=== PATIENT | male | born 1970 | race Caucasian/White ===

== ENCOUNTER 2016-11-05 15:04 | Emergency (ER) | payer BC, OTHER ==
--- NOTE | 2016-11-05 15:36 | ER Document Report ---
ED Medical Screen (RME) - General Stated Complaint: TOOTH PAIN/FEVER Notes: Patient is a 46-year-old male presents emergency Department with tooth pain for the past 2 days. Also admits to fevers and chills. Otherwise denies any foul odor or drainage. I have greeted and performed a rapid initial assessment of this patient. A comprehensive ED assessment and evaluation of the patient, analysis of test results and completion of the medical decision making process will be conducted by additional ED providers. Physical Exam - Vital signs Vitals: Temp Pulse Resp BP Pulse Ox 98.4 F 85 18 158/95 H 100 11/05/16 15:23 11/05/16 15:23 11/05/16 15:23 11/05/16 15:23 11/05/16 15:23 Course - Vital Signs Vital signs: Temp Pulse Resp BP Pulse Ox 98.4 F 85 18 158/95 H 100 11/05/16 15:23 11/05/16 15:23 11/05/16 15:23 11/05/16 15:23 11/05/16 15:23
[2016-11-05] MEDS ORDERED: IBUPROFEN 800 MG TABLET PO ONE (15:37)
[2016-11-05] MEDS ORDERED: ACETAMINOPHEN 325 MG TABLET PO ONE (15:54)
--- NOTE | 2016-11-05 16:56 | ER Document Report ---
HPI - HPI Patient complains to provider of: dental pain Onset: Other - 4 days Quality of pain: Achy Severity: Severe Pain Level: 4 Context: Presents to the emergency department with complaints of left upper dental pain that started on Thursday. He also reports he started having fever and chills on Thursday. Reports fever up to 103. He also reports he vomited twice. Patient reports he took Aleve before coming to the emergency department but it did not help his pain. Associated Symptoms: Fever, Nausea, Vomiting Exacerbated by: Denies Relieved by: Denies Similar symptoms previously: No Recently seen / treated by doctor: No - DERM Skin Color: Normal Past Medical History - General Information source: Patient - Social History Smoking Status: Never Smoker Cigarette use (# per day): No Chew tobacco use (# tins/day): No Frequency of alcohol use: None Drug Abuse: None Family History: None Patient has suicidal ideation: No Patient has homicidal ideation: No - Medical History Medical History: Negative Renal/ Medical History: Denies: Hx Peritoneal Dialysis Past Surgical History: Reports: Hx Cholecystectomy, Hx Orthopedic Surgery - Immunizations Hx Diphtheria, Pertussis, Tetanus Vaccination: No Vertical Provider Document - CONSTITUTIONAL Agree With Documented VS: Yes Exam Limitations: No Limitations General Appearance: WD/WN, No Apparent Distress - INFECTION CONTROL TRAVEL OUTSIDE OF THE [place] IN LAST 30 DAYS: No - HEENT HEENT: Atraumatic, Normocephalic. negative: Pharyngeal Erythema Mouth Diagram: 1 - Complains of pain with touch. No obvious dental cavities noted no erythema /swelling or pustule, opens mouth wide good clear voice, no induration no ludwigs - NECK Neck: Normal Inspection, Supple. negative: Lymphadenopathy-Left, Lymphadenopathy-Right - RESPIRATORY Respiratory: Breath Sounds Normal, No Respiratory Distress O2 Sat by Pulse Oximetry: 100 - CARDIOVASCULAR Cardiovascular: Regular Rate - GI/ABDOMEN Gastrointestinal: Abdomen Soft, Abdomen Non-Tender - MUSCULOSKELETAL/EXTREMETIES Musculoskeletal/Extremeties: MAEW, FROM - NEURO Level of Consciousness: Awake, Alert, Appropriate Motor/Sensory: No Motor Deficit - DERM Integumentary: Warm, Dry Course - Re-evaluation Re-evalutation: 11/05/16 Temperature recheck 98.1. Patient instructed on negative flu test. Patient instructed on medications. He was also instructed to follow up with dental. He verbalized understanding. - Vital Signs Vital signs: Temp Pulse Resp BP Pulse Ox 98.4 F 85 18 158/95 H 100 11/05/16 15:23 11/05/16 15:23 11/05/16 15:23 11/05/16 15:23 11/05/16 15:23 Discharge - Discharge Clinical Impression: Pain, dental, Flu-like symptoms, elevated blood pressure Condition: Stable Disposition: HOME, SELF-CARE Instructions: Clindamycin (OM), Toothache (OM), Oral Narcotic Medication (OM ) Additional Instructions: *You have been evaluated for dental pain, flu like symptoms *Monitor your blood pressure. Your blood pressure was elevated today. This may be because you were anxious, in pain or because you need medication. It is important to follow up with your primary care provider for full evaluation. *Take medications as prescribed *Follow up with a dentist within one week *Return to ED for worsening condition, changes, needs Prescriptions: Clindamycin HCl 300 mg PO QID #20 capsule Hydrocodone/Acetaminophen [Dagmar 5-325 Tablet] 1 each PO QID #15 tablet Forms: Elevated Blood Pressure
[2016-11-05 17:59] VITALS: BP 131/85
== END 2016-11-05 17:54 | disposition home or self-care (01) ==
LOC: ER 15:04
DX: K08.89 Other specified disorders of teeth and supporting structures (principal); R50.9 Fever, unspecified; R11.2 Nausea with vomiting, unspecified; I10 Essential (primary) hypertension; Z90.49 Acquired absence of other specified parts of digestive tract
CPT/HCPCS: 87804; 99283

== ENCOUNTER 2017-03-17 08:08 | Emergency (ER) | payer OTHER ==
[2017-03-17] MEDS ORDERED: TETRACAINE HCL 0.5% OPH SOLN 2 ML OD ONE (09:36)
[2017-03-17] MEDS ORDERED: DIPH/PERTUSS(ACELL)/TETANUS VAC/PF 0.5 ML SYR (>=10YO) IM ONE (09:47)
[2017-03-17] MEDS ORDERED: KETOROLAC TROMETHAMINE 0.45% 4 DROP/0.4 ML DROPERETTE OD ONE (09:48)
[2017-03-17] MEDS ORDERED: POLYMYXIN B SULFATE/TMP OPH SOLN 10 ML OD ONE (09:48)
--- NOTE | 2017-03-17 09:49 | ER Document Report ---
ED Foreign Body - General Mode of Arrival: Ambulatory Information source: Patient TRAVEL OUTSIDE OF THE [place] 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 Patient states that once arriving at the ER he did flush the metal out finally after multiple attempts. He does not when his last tetanus was. He admits to irritation of the eye but denies any actual pain. He denies any blurred vision or vision changes. (MAYNOR MUNOZ) - Related Data Allergies/Adverse Reactions: cephalexin [From Keflex] Allergy (Verified 03/17/17 09:32) ibuprofen [From Advil] Allergy (Verified 03/17/17 09:32) metoclopramide [From Reglan] Allergy (Verified 03/17/17 09:32) morphine Allergy (Verified 03/17/17 09:32) No Known Drug Allergies Allergy (Verified 03/17/17 09:32) Past Medical History - General Information source: Patient - Social History Smoking Status: Current Every Day Smoker Chew tobacco use (# tins/day): No Frequency of alcohol use: None Drug Abuse: None Family History: None Patient has suicidal ideation: No Patient has homicidal ideation: No Renal/ Medical History: Denies: Hx Peritoneal Dialysis Past Surgical History: Reports: Hx Cholecystectomy, Hx Orthopedic Surgery - Immunizations Hx Diphtheria, Pertussis, Tetanus Vaccination: No Review of Systems - Review of Systems Constitutional: No symptoms reported EENT: See HPI Cardiovascular: No symptoms reported Respiratory: No symptoms reported Gastrointestinal: No symptoms reported Genitourinary: No symptoms reported Male Genitourinary: No symptoms reported Musculoskeletal: No symptoms reported Skin: No symptoms reported Hematologic/Lymphatic: No symptoms reported Neurological/Psychological: No symptoms reported Physical Exam - Vital signs Vitals: Temp Pulse Resp BP Pulse Ox 98.1 F 54 L 16 150/94 H 97 03/17/17 08:21 03/17/17 08:21 03/17/17 08:21 03/17/17 08:21 03/17/17 08:21 - Notes Notes: PHYSICAL EXAMINATION: GENERAL: Well-appearing and in no acute distress. HEAD: Atraumatic, normocephalic. EYES: Pupils equal round and reactive to light, extraocular movements intact, sclera anicteric, conjunctiva watering to right eye, flourescein stain revealed small ulcer over iris inferior to pupil NECK: Normal range of motion, supple without lymphadenopathy LUNGS: CTAB and equal. No wheezes rales or rhonchi. HEART: Regular rate and rhythm without murmurs EXTREMITIES: Normal range of motion, no pitting edema. No cyanosis. NEUROLOGICAL: Cranial nerves grossly intact. Normal sensory/motor exams. PSYCH: Normal mood, normal affect. SKIN: Warm, Dry, normal turgor, no rashes or lesions noted (MAYNOR MUNOZ) Procedures - Eye Procedure Right Time completed: 10:48 Eye Irrigated w/ Saline (ccs): 30 Alcaine Drops Administered: Yes Fluorescein applied: Right Antibiotic Oinment/Drps Admin: Right eye Slit lamp used: No Discharge - Discharge Clinical Impression: Need for tetanus booster Abrasion of eye Qualifiers: Encounter type: initial encounter Laterality: right Qualified Code(s): S05.8X1A - Other injuries of right eye and orbit, initial encounter Condition: Stable Disposition: HOME, SELF-CARE Additional Instructions: Return immediately for any new or worsening symptoms. Follow up with primary care provider, call tomorrow to make followup appointment. Prescriptions: Ketorolac Tromethamine 1 drop OD Q8 PRN #1 bottle PRN Reason: Forms: Return to Work Referrals: GILES JOSE DO [ACTIVE STAFF] - Follow up as needed
[2017-03-17 10:25] VITALS: BP 148/90
== END 2017-03-17 10:18 | disposition home or self-care (01) ==
LOC: ER 08:08
DX: S05.8X1A Other injuries of right eye and orbit, initial encounter (principal); T15.91XA Foreign body on external eye, part unspecified, right eye, initial encounter; W22.8XXA Striking against or struck by other objects, initial encounter
CPT/HCPCS: 99283; 90471; 90715; J3490

== ENCOUNTER 2019-10-26 08:20 | Emergency (ER) | payer OTHER ==
[2019-10-26] MEDS ORDERED: NORMAL SALINE 1000 ML 1,000 ML IV ONE (11:05)
[2019-10-26] MEDS ORDERED: ONDANSETRON HCL INJ/PF 4 MG/2 ML SDV IV ONE (11:05)
[2019-10-26] MEDS ORDERED: KETOROLAC TROMETHAMINE INJ/PF 30 MG/1 ML SDV IV ONE (11:05)
--- NOTE | 2019-10-26 11:19 | ER Document Report ---
ED General - General Chief Complaint: Urinary Problem Stated Complaint: NAUSEA/URINARY PROBLEMS Time Seen by Provider: 10/26/19 10:49 Primary Care Provider: PATTI RANKIN PA [Primary Care Provider] - Follow up as needed TRAVEL OUTSIDE OF THE [place] IN LAST 30 DAYS: No - HPI Notes: Mr. Black is a 49-year-old male presenting with a chief complaint of intermittent right flank pain, nausea, anorexia and malaise. Patient says he started with the symptoms about 5 days ago was seen in urgent care center and told that he had "possible prostatitis". He was started on Bactrim and also given some as needed Zofran. Symptoms basically unchanged. Pain is intermittent and at times is severe is 8/10 radiating into right upper quadrant. He denies fever or chills. Denies any known prior history of renal stones. Multiple drug allergies including acetaminophen cephalexin penicillin Cipro and hydrocodone. Patient says he has tolerated Toradol in the past without difficulty. Patient has had lumbar laminectomy in the past and also has had surgical correction of a Chiari malformation. Daily smoker. Denies abuse of drugs or alcohol. - Related Data Allergies/Adverse Reactions: acetaminophen [From Vicodin] Allergy (Verified 10/26/19 08:48) cephalexin [From Keflex] Allergy (Verified 10/26/19 08:48) ciprofloxacin [From Cipro] Allergy (Verified 10/26/19 08:48) hydrocodone [From Vicodin] Allergy (Verified 10/26/19 08:48) ibuprofen [From Advil] Allergy (Verified 10/26/19 08:48) metoclopramide [From Reglan] Allergy (Verified 10/26/19 08:48) morphine Allergy (Verified 10/26/19 08:48) Home Medications: fish oil, bactrim Past Medical History - Social History Smoking Status: Current Every Day Smoker Chew tobacco use (# tins/day): No Frequency of alcohol use: None Drug Abuse: None Family History: None Patient has suicidal ideation: No Patient has homicidal ideation: No Renal/ Medical History: Denies: Hx Peritoneal Dialysis Past Surgical History: Reports: Hx Cholecystectomy, Hx Orthopedic Surgery - Immunizations Hx Diphtheria, Pertussis, Tetanus Vaccination: No Review of Systems - Review of Systems Notes: Constitutional: Negative for fever. HENT: Negative for sore throat. Eyes: Negative for visual changes. Cardiovascular: Negative for chest pain. Respiratory: Negative for shortness of breath. Gastrointestinal: As per HPI. Genitourinary: Negative for dysuria. Musculoskeletal: As per HPI. Skin: Negative for rash. Neurological: Negative for headaches, weakness or numbness. 10 point ROS negative except as marked above and in HPI. Physical Exam - Vital signs Vitals: Temp Pulse Resp BP Pulse Ox 98.7 F 73 16 125/86 H 98 10/26/19 08:24 10/26/19 08:24 10/26/19 08:24 10/26/19 08:24 10/26/19 08:24 - Notes Notes: GENERAL: Well-developed well-nourished appearing generally unwell and uncomfortable. SKIN: Good turgor no rashes. HEAD: Normocephalic atraumatic. EYES: PERRLA. EOMI. Conjunctivae and sclerae clear. EARS: CANALS AND TMS CLEAR. NOSE: CLEAR. MOUTH: Moist mucosa. Good dentition. No stridor or edema. No drooling. NECK: Supple. No masses or thyromegaly. No adenopathy. Carotids 2+ without bruits. No JVD. BACK: Right CVAT. CHEST: Respirations unlabored. Breath sounds clear and symmetrical. HEART: Regular rhythm. No murmur gallop or rub. ABDOMEN: Mild tenderness on deep palpation right upper quadrant. Soft without masses, organomegaly or rebound. Bowel sounds normally active. No bruits. GENITALIA: Deferred. EXTREMITIES: No edema. No calf tenderness. Cap refill less than 1.5 seconds. Dorsalis pedis and posterior tibial pulses 3+ and symmetrical. NEUROLOGICAL: GCS 15. Alert and oriented x3. Normal gait. Fluent speech. Cranial nerves II through XII intact. Sensorimotor and cerebellar normal. Normal tone. PSYCHIATRIC: Appropriate affect. Course - Vital Signs Vital signs: Temp Pulse Resp BP Pulse Ox 98.1 F 60 18 124/88 H 100 10/26/19 13:14 10/26/19 13:14 10/26/19 13:14 10/26/19 13:14 10/26/19 13:14 - Laboratory Result Diagrams: 10/26/19 11:24 10/26/19 11:24 Laboratory results interpreted by me: 10/26/19 10/26/19 11:24 11:24 WBC 10.6 H Leukocyte Esterase Rfl TRACE H Discharge - Discharge Clinical Impression: Right Flank Pain Condition: Stable Disposition: ELOPED Referrals: PATTI RANKIN PA [Primary Care Provider] - Follow up as needed
[2019-10-26 11:43] LABS: ABSOLUTE EOSINOPHILS # (AUTO) 0.1 10^3/uL (0.0-0.6); ABSOLUTE LYMPHOCYTES (AUTO) 2.3 10^3/uL (0.5-4.7); ABSOLUTE MONOCYTES (AUTO) 0.5 10^3/uL (0.1-1.4); ABSOLUTE NEUT (AUTO) 7.7 10^3/uL (1.7-8.2); BASOPHILS % (AUTO) 0.2 % (0-2); HEMATOCRIT 43.1 % (37.9-51.0); HEMOGLOBIN 14.8 g/dL (13.5-17.0); LYMPHOCYTES % (AUTO) 21.5 % (13-45); MEAN CORPUSCULAR HEMOGLOBIN 32.5 pg (27.0-33.4); MEAN CORPUSCULAR HGB CONC 34.3 g/dL (32.0-36.0); MEAN CORPUSCULAR VOLUME 95 fl (80-97); MONOCYTES % (AUTO) 4.5 % (3-13); PLATELET COUNT 239 10^3/uL (150-450); RED BLOOD COUNT 4.55 10^6/uL (4.35-5.55); RED CELL DISTRIBUTION WIDTH 13.9 % (11.5-14.0); SEGMENTED NEUTROPHILS % (AUTO) 72.8 % (42-78); TOTAL CELLS COUNTED % (AUTO) 100 %; WHITE BLOOD COUNT 10.6 10^3/uL (4.0-10.5)
[2019-10-26 11:46] LABS: APPEARANCE,URINE CLEAR; BILIRUBIN,URINE NEGATIVE (NEGATIVE); COLOR,URINE YELLOW; GLUCOSE, URINE NEGATIVE (NEGATIVE); KETONES,URINE NEGATIVE (NEGATIVE); PROTEIN,URINE NEGATIVE (NEGATIVE); URINE SPECIFIC GRAVITY 1.016; UROBILINOGEN,URINE NEGATIVE mg/dL (<2.0)
[2019-10-26 11:58] LABS: ALKALINE PHOSPHATASE 62 U/L (38-126); ANION GAP 9 (5-19); ASPARTATE AMINO TRANSFERASE 34 U/L (17-59); BILIRUBIN,DIRECT 0.2 mg/dL (0.0-0.4); BILIRUBIN,TOTAL 0.4 mg/dL (0.2-1.3); BLOOD UREA NITROGEN 8 mg/dL (7-20); CALCIUM 9.3 mg/dL (8.4-10.2); CARBON DIOXIDE 26 mmol/L (22-30); CHLORIDE 105 mmol/L (98-107); GLUCOSE 77 mg/dL (75-110); POTASSIUM 4.8 mmol/L (3.6-5.0)
--- NOTE | 2019-10-26 12:01 | RADIOLOGY REPORT (SQ) ---
EXAM DESCRIPTION: CT ABD/PELVIS NO ORAL OR IV COMPLETED DATE/TIME: 10/26/2019 11:40 am REASON FOR STUDY: Right flank pain and hematuria COMPARISON: None. TECHNIQUE: CT scan of the abdomen and pelvis performed without intravenous or oral contrast. Images reviewed with lung, soft tissue, and bone windows. Reconstructed coronal and sagittal MPR images revi ewed. All images stored on PACS. All CT scanners at this facility use dose modulation, iterative reconstruction, and/or weight based d osing when appropriate to reduce radiation dose to as low as reasonably achievable (ALARA). [facility]: Dose Right [facility]: CareDose [facility]: Dose Right [facility]: Teradose 4D [facility]: Smart UserEvents RADIATION DOSE: CT Rad equipment meets quality standard of care and radiation dose reduction techniq ues were employed. CTDIvol: 5.7 mGy. DLP: 324 mGy-cm.mGy. LIMITATIONS: None. FINDINGS: LOWER CHEST: No acute findings. NON-CONTRASTED LIVER, SPLEEN, ADRENALS: Evaluation is limited due to the absence of intravenous contr ast. There are geographic areas of hepatic steatosis in the right hepatic lobe. The spleen is lebron l in size. There is no abnormality of the adrenal glands PANCREAS: No acute gross abnormality of the pancreas GALLBLADDER: The gallbladder is surgically absent. RIGHT KIDNEY AND URETER: Evaluation is limited due to the absence of intravenous contrast. There is no hydronephrosis, nephrolithiasis, hydroureter or ureterolithiasis. LEFT KIDNEY AND URETER: Evaluation is limited due to the absence of intravenous contrast. There is n o hydronephrosis, nephrolithiasis, hydroureter or ureterolithiasis. AORTA AND RETROPERITONEUM: No aneurysm of the abdominal aorta. No retroperitoneal adenopathy, hemorr inc or mass. BOWEL AND PERITONEAL CAVITY: Colonic diverticulosis without diverticulitis. There is no bowel obstru ction, bowel wall thickening, pericolonic/perienteric inflammation. The spiculated density near the left inguinal canal (image 76 of see series 3) is nonspecific. There is no free intraperitoneal flui d, mesenteric adenopathy or mesenteric/ omental inflammation APPENDIX: Normal. PELVIS, BLADDER, AND ABDOMINAL WALL: The urinary bladder is distended and normal in appearance. The prostate gland is normal in size. BONES: No acute findings. OTHER: No abdominal wall masses or hernias. IMPRESSION: No acute intra-abdominal abnormality. COMMENT: Quality ID # [id number]: Final reports with documentation of one or more dose reduction techniques (e.g., Automated exposure control, adjustment of the mA and/or kV according to patient size, use of iterative reconstruction technique) TECHNICAL DOCUMENTATION: JOB ID: [id number] [employer]- All Rights Reserved Reading location - IP/workstation name: [email or web address]
[2019-10-26 13:16] VITALS: BP 124/88
== END 2019-10-26 14:05 | disposition left against medical advice (07) ==
LOC: ER 08:20
DX: R10.9 Unspecified abdominal pain (principal); R11.0 Nausea; R53.81 Other malaise; R63.0 Anorexia; F17.210 Nicotine dependence, cigarettes, uncomplicated; Z88.0 Allergy status to penicillin; Z88.3 Allergy status to other anti-infective agents; Z88.6 Allergy status to analgesic agent; Z90.49 Acquired absence of other specified parts of digestive tract
CPT/HCPCS: 99281; 96361; 96374; 96375; 36415; 87086; 85025; 80053; 81001; 74176; J1885; J2405; J7030

== ENCOUNTER 2019-12-01 22:00 | Emergency (ER) | payer OTHER ==
[2019-12-01] MEDS ORDERED: KETOROLAC TROMETHAMINE INJ/PF 30 MG/1 ML SDV IV ONE (22:37)
--- NOTE | 2019-12-01 22:43 | ER Document Report ---
ED Medical Screen (RME) - General Chief Complaint: Possible Kidney Stone Stated Complaint: POSSIBLE KIDNEY STONES Time Seen by Provider: 12/01/19 22:32 Primary Care Provider: PATTI RANKIN PA [Primary Care Provider] - Follow up as needed Notes: Patient is a 49-year-old male who presents to the emergency department with urinating mucus today. He also has some associated nausea and flank pain. He has been taking Zofran. Patient was seen by her urologist today and was told that on ultrasound they were able to see some stones. He was seen here in the emergency department 5 days ago with similar symptoms. Physical exam: Right CVA tenderness. I have greeted and performed a rapid initial assessment of this patient. A comprehensive ED assessment and evaluation of the patient, analysis of test results and completion of medical decision making process will be conducted by an additional ED providers. TRAVEL OUTSIDE OF THE [place] IN LAST 30 DAYS: No - Related Data Allergies/Adverse Reactions: acetaminophen [From Vicodin] Allergy (Verified 10/26/19 08:48) cephalexin [From Keflex] Allergy (Verified 10/26/19 08:48) ciprofloxacin [From Cipro] Allergy (Verified 10/26/19 08:48) hydrocodone [From Vicodin] Allergy (Verified 10/26/19 08:48) ibuprofen [From Advil] Allergy (Verified 10/26/19 08:48) metoclopramide [From Reglan] Allergy (Verified 10/26/19 08:48) morphine Allergy (Verified 10/26/19 08:48) Home Medications: [place] 3. prednisone. zofran Past Medical History - Social History Chew tobacco use (# tins/day): No Frequency of alcohol use: None Drug Abuse: None Renal/ Medical History: Denies: Hx Peritoneal Dialysis Past Surgical History: Reports: Hx Cholecystectomy, Hx Orthopedic Surgery - Immunizations Hx Diphtheria, Pertussis, Tetanus Vaccination: No Physical Exam - Vital signs Vitals: Temp Pulse Resp BP Pulse Ox 98.7 F 87 16 155/94 H 97 12/01/19 22:09 12/01/19 22:09 12/01/19 22:09 12/01/19 22:09 12/01/19 22:09 Course - Vital Signs Vital signs: Temp Pulse Resp BP Pulse Ox 98.7 F 87 16 155/94 H 97 12/01/19 22:09 12/01/19 22:09 12/01/19 22:09 12/01/19 22:09 12/01/19 22:09 Doctor's Discharge - Discharge Referrals: PATTI RANKIN PA [Primary Care Provider] - Follow up as needed
[2019-12-01 23:36] LABS: ABSOLUTE LYMPHOCYTES (AUTO) 3.4 10^3/uL (0.5-4.7); ABSOLUTE MONOCYTES (AUTO) 0.9 10^3/uL (0.1-1.4); ABSOLUTE NEUT (AUTO) 9.3 10^3/uL (1.7-8.2); BASOPHILS % (AUTO) 0.3 % (0-2); EOSINOPHILS % (AUTO) 0.4 % (0-6); HEMATOCRIT 41.6 % (37.9-51.0); HEMOGLOBIN 14.4 g/dL (13.5-17.0); LYMPHOCYTES % (AUTO) 24.7 % (13-45); MEAN CORPUSCULAR HEMOGLOBIN 32.6 pg (27.0-33.4); MEAN CORPUSCULAR HGB CONC 34.7 g/dL (32.0-36.0); MEAN CORPUSCULAR VOLUME 94 fl (80-97); MONOCYTES % (AUTO) 6.4 % (3-13); PLATELET COUNT 280 10^3/uL (150-450); RED BLOOD COUNT 4.44 10^6/uL (4.35-5.55); RED CELL DISTRIBUTION WIDTH 13.8 % (11.5-14.0); SEGMENTED NEUTROPHILS % (AUTO) 68.2 % (42-78); TOTAL CELLS COUNTED % (AUTO) 100 %; WHITE BLOOD COUNT 13.6 10^3/uL (4.0-10.5)
[2019-12-01 23:52] LABS: ALBUMIN 4.4 g/dL (3.5-5.0); ALKALINE PHOSPHATASE 59 U/L (38-126); ANION GAP 9 (5-19); ASPARTATE AMINO TRANSFERASE 25 U/L (17-59); BILIRUBIN,DIRECT 0.3 mg/dL (0.0-0.4); BILIRUBIN,TOTAL 0.3 mg/dL (0.2-1.3); BLOOD UREA NITROGEN 19 mg/dL (7-20); CARBON DIOXIDE 32 mmol/L (22-30); CHLORIDE 99 mmol/L (98-107); GLUCOSE 107 mg/dL (75-110); TOTAL PROTEIN 7.3 g/dL (6.3-8.2)
[2019-12-02 00:24] LABS: APPEARANCE,URINE SLIGHTLY-CLOUDY; BILIRUBIN,URINE NEGATIVE (NEGATIVE); COLOR,URINE AMBER; GLUCOSE, URINE NEGATIVE (NEGATIVE); KETONES,URINE TRACE mg/dL (NEGATIVE); LEUKOCYTE ESTERASE,URINE TRACE (NEGATIVE); NITRITE,URINE NEGATIVE (NEGATIVE); PROTEIN,URINE 30 mg/dL (NEGATIVE); URINE SPECIFIC GRAVITY 1.026
[2019-12-02] MEDS ORDERED: NORMAL SALINE 1000 ML 1,000 ML IV ONE (00:59)
--- NOTE | 2019-12-02 01:13 | ER Document Report ---
ED GI/ - General Chief Complaint: Possible Kidney Stone Stated Complaint: POSSIBLE KIDNEY STONES Time Seen by Provider: 12/01/19 22:32 Primary Care Provider: PATTI RANKIN PA [Primary Care Provider] - Follow up as needed Notes: Patient is a 49-year-old male who comes emergency department for chief complaints of some intermittent mid to lower abdominal discomfort, some intermittent pain in the right side of his back, and what looks like "mucus" in his urine that he noticed earlier today. He states that he has been having intermittent symptoms since last month when he was evaluated here and had a CAT scan. He states he followed up, he was told that he had "some pancreatitis" and he states that he was placed on prednisone for this. I questioned patient about this but he states that he definitely is on a prednisone taper and he was told it was for pancreatitis. He states that he also was told that he had "little stones" on ultrasound after he was seen by urology. He states he has a pending follow-up appointment tomorrow but he wanted to be checked out tonight. He states that he was given Toradol and he took some Zofran he was prescribed and now he actually feels a lot better. He states he is still eating but less than usual. Patient has had a cholecystectomy, Chiari malformation repair, lumbar laminectomy. He denies history of kidney stones previously. He states he is not currently on any antibiotics. TRAVEL OUTSIDE OF THE [place] IN LAST 30 DAYS: No - Related Data Allergies/Adverse Reactions: acetaminophen [From Vicodin] Allergy (Verified 10/26/19 08:48) cephalexin [From Keflex] Allergy (Verified 10/26/19 08:48) ciprofloxacin [From Cipro] Allergy (Verified 10/26/19 08:48) hydrocodone [From Vicodin] Allergy (Verified 10/26/19 08:48) ibuprofen [From Advil] Allergy (Verified 10/26/19 08:48) metoclopramide [From Reglan] Allergy (Verified 10/26/19 08:48) morphine Allergy (Verified 10/26/19 08:48) Home Medications: [place] 3. prednisone. zofran Past Medical History - General Information source: Patient - Social History Smoking Status: Current Every Day Smoker Chew tobacco use (# tins/day): No Frequency of alcohol use: None Drug Abuse: None Lives with: Family Family History: None Patient has suicidal ideation: No Patient has homicidal ideation: No Renal/ Medical History: Denies: Hx Peritoneal Dialysis Past Surgical History: Reports: Hx Cholecystectomy, Hx Orthopedic Surgery - L4 L5 lamenectomy - Immunizations Hx Diphtheria, Pertussis, Tetanus Vaccination: Yes Review of Systems - Review of Systems Constitutional: See HPI EENT: No symptoms reported Cardiovascular: No symptoms reported Respiratory: No symptoms reported Gastrointestinal: See HPI Genitourinary: See HPI Male Genitourinary: No symptoms reported Musculoskeletal: No symptoms reported Skin: No symptoms reported Hematologic/Lymphatic: No symptoms reported Neurological/Psychological: No symptoms reported Physical Exam - Vital signs Vitals: Temp Pulse Resp BP Pulse Ox 98.7 F 87 16 155/94 H 97 12/01/19 22:09 12/01/19 22:09 12/01/19 22:09 12/01/19 22:09 12/01/19 22:09 - Notes Notes: GENERAL: Alert, interacts well. No acute distress. HEAD: Normocephalic, atraumatic. EYES: Pupils equal, round, and reactive to light. Extraocular movements intact. ENT: Oral mucosa dry, tongue midline. Oropharynx unremarkable. Airway patent. Nares patent, no nasal septal hematoma NECK: Full range of motion. Supple. Trachea midline. LUNGS: Clear to auscultation bilaterally, no wheezes, rales, or rhonchi. No respiratory distress. HEART: Regular rate and rhythm. No murmur ABDOMEN: Soft, non-tender. Non-distended. Bowel sounds present in all 4 quadrants. GENITOURINARY: Deferred EXTREMITIES: Moves all 4 extremities spontaneously. No edema, normal radial and dorsalis pedis pulses bilaterally. No cyanosis. BACK: No CVA tenderness. No cervical, thoracic, lumbar midline tenderness. No saddle anesthesia, normal distal neurovascular exam. Moves all extremities in full range of motion. NEUROLOGICAL: Alert and oriented x3. Normal speech. Cranial nerves II through XII grossly intact. PSYCH: Normal affect, normal mood. SKIN: Warm, dry, normal turgor. No rashes or lesions noted. Course - Re-evaluation Re-evalutation: Patient is well-appearing, he has no CVA tenderness on exam, his abdomen is soft and benign, he is well-appearing other than somewhat dry mucous membranes. CBC shows mild leukocytosis, nonspecific given symptoms and exam, chemistry unremarkable including lipase. Urinalysis unremarkable except for elevated s pecific gravity. Patient given IV fluids. Patient is requesting discharge after IV fluids and states he feels much better, states she has a close follow- up appointment. I did offer to perform an ultrasound to evaluate for potential stones and hydronephrosis but patient declined. He states he will get his reports and he will be seen again today anyway. Discussed follow-up and return precautions. Patient states appreciation and agreement. Stable at time of discharge. - Vital Signs Vital signs: Temp Pulse Resp BP Pulse Ox 97.4 F 58 L 15 140/87 H 95 12/02/19 02:11 12/02/19 02:11 12/02/19 02:11 12/02/19 02:11 12/02/19 02:11 - Laboratory Result Diagrams: 12/01/19 23:15 12/01/19 23:15 Laboratory results interpreted by me: 12/01/19 12/01/19 12/01/19 23:15 23:15 23:44 WBC 13.6 H Absolute Neuts (auto) 9.3 H Carbon Dioxide 32 H Urine Protein 30 H Urine Ketones TRACE H Urine Urobilinogen 2.0 H Ur Leukocyte Esterase TRACE H Discharge - Discharge Clinical Impression: Flank pain, Dehydration Abdominal pain Qualifiers: Abdominal location: generalized Qualified Code(s): R10.84 - Generalized abdominal pain Condition: Stable Disposition: HOME, SELF-CARE Additional Instructions: You have been treated for dehydration. Your urinalysis, chemistry, lipase, do not show any concerning findings. Follow close with your primary care provider and urologist for additional management. Return for any concerning or worsening symptoms including vomiting, fever, severe worsening pain, or any other concerning symptoms. Referrals: PATTI RANKIN PA [Primary Care Provider] - Follow up as needed
[2019-12-02 02:13] VITALS: BP 140/87
== END 2019-12-02 02:13 | disposition home or self-care (01) ==
LOC: ER 22:00
DX: R10.84 Generalized abdominal pain (principal); E86.0 Dehydration; R10.9 Unspecified abdominal pain; R10.30 Lower abdominal pain, unspecified; M54.9 Dorsalgia, unspecified; R63.0 Anorexia; Z90.49 Acquired absence of other specified parts of digestive tract; Z88.1 Allergy status to other antibiotic agents; Z88.8 Allergy status to other drugs, medicaments and biological substances; F17.200 Nicotine dependence, unspecified, uncomplicated
CPT/HCPCS: 99284; 96361; 96374; 36415; 87086; 83690; 85025; 80053; 81001; J1885; J7030

== ENCOUNTER 2019-12-15 10:01 | Emergency (ER) | payer OTHER ==
[2019-12-15 10:45] LABS: ABSOLUTE BASOPHILS # (AUTO) 0.1 10^3/uL (0.0-0.2); ABSOLUTE EOSINOPHILS # (AUTO) 0.1 10^3/uL (0.0-0.6); ABSOLUTE LYMPHOCYTES (AUTO) 1.7 10^3/uL (0.5-4.7); ABSOLUTE MONOCYTES (AUTO) 0.4 10^3/uL (0.1-1.4); ABSOLUTE NEUT (AUTO) 11.1 10^3/uL (1.7-8.2); BASOPHILS % (AUTO) 0.4 % (0-2); EOSINOPHILS % (AUTO) 0.5 % (0-6); HEMATOCRIT 43.8 % (37.9-51.0); HEMOGLOBIN 15.4 g/dL (13.5-17.0); LYMPHOCYTES % (AUTO) 12.9 % (13-45); MEAN CORPUSCULAR HEMOGLOBIN 32.8 pg (27.0-33.4); MEAN CORPUSCULAR HGB CONC 35.1 g/dL (32.0-36.0); MEAN CORPUSCULAR VOLUME 93 fl (80-97); MONOCYTES % (AUTO) 2.7 % (3-13); PLATELET COUNT 279 10^3/uL (150-450); RED BLOOD COUNT 4.69 10^6/uL (4.35-5.55); RED CELL DISTRIBUTION WIDTH 13.6 % (11.5-14.0); SEGMENTED NEUTROPHILS % (AUTO) 83.5 % (42-78); TOTAL CELLS COUNTED % (AUTO) 100 %; WHITE BLOOD COUNT 13.2 10^3/uL (4.0-10.5)
--- NOTE | 2019-12-15 10:51 | ER Document Report ---
ED General - General Chief Complaint: Flank Pain Stated Complaint: FLANK PAIN Time Seen by Provider: 12/15/19 10:50 Primary Care Provider: PATTI RANKIN PA [Primary Care Provider] - Follow up tomorrow GISELL BARNHART MD [ACTIVE STAFF] - Follow up as needed TRAVEL OUTSIDE OF THE [place] IN LAST 30 DAYS: No - HPI Notes: 49-year-old male presents emergency room for complaints of epigastric and right greater than left flank pain that started approximately 5 days ago. Patient states he was seen at [facility], was diagnosed with colitis and placed on Flagyl and Bactrim, states he is not getting any better. Still is vomiting. Patient states his last BM was 2 days ago, he is passing flatus. Patient denies any history of renal stones, pancreatitis, IBS, diverticulosis, diverticulitis, colitis. Denies any recent travel outside of the [place], new medications or new foods. Patient states that he did eat chicken for the first time 5 days ago, he is not a vegetarian but he typically does not eat chicken and states this may be a factor. Denies fevers, chills, chest p ain,palpitations, shortness of breath, dyspnea, diarrhea, , hematuria,blurred vision, double vision, loss of vision, speech changes, LH, dizziness, syncope, headaches, wheezing, ST, URI, neck pain, weakness, bowel or bladder dysfunction, saddle anesthesia, numbness or tingling in bilateral upper or lower extremities equally, muscle paralysis, weakness in bilateral upper or lower extremities equally or rash. - Related Data Allergies/Adverse Reactions: acetaminophen [From Vicodin] Allergy (Verified 12/15/19 12:46) cephalexin [From Keflex] Allergy (Verified 12/15/19 12:46) ciprofloxacin [From Cipro] Allergy (Verified 12/15/19 12:46) hydrocodone [From Vicodin] Allergy (Verified 12/15/19 12:46) ibuprofen [From Advil] Allergy (Verified 12/15/19 12:46) metoclopramide [From Reglan] Allergy (Verified 12/15/19 12:46) morphine Allergy (Verified 12/15/19 12:46) Past Medical History - General Information source: Patient - Social History Smoking Status: Current Some Day Smoker Chew tobacco use (# tins/day): No Frequency of alcohol use: None Drug Abuse: None Family History: None Patient has suicidal ideation: No Patient has homicidal ideation: No Renal/ Medical History: Denies: Hx Peritoneal Dialysis Past Surgical History: Reports: Hx Cholecystectomy, Hx Orthopedic Surgery - L4 L5 lamenectomy - Immunizations Hx Diphtheria, Pertussis, Tetanus Vaccination: Yes Review of Systems - Review of Systems Constitutional: No symptoms reported EENT: No symptoms reported Cardiovascular: No symptoms reported Respiratory: No symptoms reported Gastrointestinal: See HPI Genitourinary: No symptoms reported Male Genitourinary: No symptoms reported Musculoskeletal: No symptoms reported Skin: No symptoms reported Hematologic/Lymphatic: No symptoms reported Neurological/Psychological: No symptoms reported Physical Exam - Vital signs Vitals: Temp Pulse Resp BP Pulse Ox 98.2 F 82 18 196/98 H 99 12/15/19 10:04 12/15/19 10:04 12/15/19 10:04 12/15/19 10:04 12/15/19 10:04 - Notes Notes: GENERAL: Well-appearing, well-nourished and in no acute distress. HEAD: Atraumatic, normocephalic. EYES: Pupils equal round and reactive to light, extraocular movements intact, sclera anicteric, conjunctiva are normal. ENT: nares patent, oropharynx clear without exudates. Moist mucous membranes. NECK: Normal range of motion, supple without lymphadenopathy LUNGS: Breath sounds clear to auscultation bilaterally and equal. No wheezes rales or rhonchi. HEART: Regular rate and rhythm without murmurs ABDOMEN: Epigastric abdominal pain on palpation nontender, normoactive bowel sounds. No guarding, no rebound. No masses appreciated. Greater than left CVA tenderness appreciated EXTREMITIES: Normal range of motion, no pitting or edema. No cyanosis. NEUROLOGICAL: No focal neurological deficits. Moves all extremities spontaneously and on command. PSYCH: Normal mood, normal affect. SKIN: Warm, Dry, normal turgor, no rashes or lesions noted. Course - Re-evaluation Re-evalutation: 12/15/19 17:09 Afebrile, manual blood pressure showed 140s over 80s, in no distress. Patient given 2 L of IV fluids as well as 30 mg of Toradol IVP. CBC does show a leukocytosisof 13.2, no anemia, CMP negative for hepatic or renal dysfunction, no electrolyte disturbances. Urinalysis unremarkable. Patient has tenderness to epigastric and lower abdominal area as well as bilateral flank pain right greater than left. Patient was given a GI cocktail to help with epigastric pain which did resolve his epigastric pain. Patient's been taking Flagyl and Bactrim for colitis, with slight leukocytosis, started 1 g of vancomycin which patient tolerated without issues. CT abdomen pelvis with IV contrast shows a normal appendix, there is a large amount of stool throughout the colon and rectum there is no bowel obstruction no bowel wall thickening, no significant inflammatory changes or ascites. CT did not see any inflammatory changes to suggest colitis does show moderate hepatic data steatosis. A it appears that the oral antibiotics have been working, I suggested that the patient should continue until seen by the primary care provider which she should do within the next 24 hours. advised rest, increase oral hydration. After performing a Medical Screening Examination, I estimate there is LOW risk for ACUTE APPENDICITIS, BOWEL OBSTRUCTION, ACUTE CHOLECYSTITIS, PERFORATED DIVERTICULITIS, INCARCERATED HERNIA, PANCREATITIS, TESTICULAR TORSION or PERFORATED ULCER, thus I consider the discharge disposition reasonable. Also, there is no evidence or peritonitis, sepsis, or toxicity. I have reevaluated this patient multiple times and no significant life threatening changes are noted. The patient and I have discussed the diagnosis and risks, and we agree with discharging home with close follow-up with the understanding that symptoms and presentations can change. We also discussed returning to the Emergency Department immediately if new or worsening symptoms occur. We have discussed the symptoms which are most concerning (e.g., bloody stool, fever, changing or worsening pain, intractable vomiting - standard verbal up date) that necessitate immediate return. - Vital Signs Vital signs: Temp Pulse Resp BP Pulse Ox 97.9 F 57 L 16 139/94 H 100 12/15/19 15:52 12/15/19 15:52 12/15/19 15:52 12/15/19 15:52 12/15/19 15:52 - Laboratory Result Diagrams: 12/15/19 10:40 12/15/19 10:40 Laboratory results interpreted by me: 12/15/19 12/15/19 10:40 10:50 WBC 13.2 H Lymph % (Auto) 12.9 L Merrick % (Auto) 2.7 L Absolute Neuts (auto) 11.1 H Seg Neutrophils % 83.5 H Ur Leukocyte Esterase TRACE H Discharge - Discharge Clinical Impression: Dehydration, Abdominal pain Condition: Stable Disposition: HOME, SELF-CARE Instructions: Colitis, Nonspecific ([facility]) Additional Instructions: Continue oral antibiotics as directed. Your CT does not show that you have colitis it does show a large amount of stool it does show that you have a fatty liver which was likely seen on your previous CT. Your colitis may have been resolved with antibiotics you have been taking. 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 Follow up with primary care provider, call tomorrow to make followup appointment. Prescriptions: Prochlorperazine Maleate [Compazine 10 mg Tablet] 10 mg PO ASDIR PRN #10 tablet PRN Reason: Forms: Return to Work Referrals: PATTI RANKIN PA [Primary Care Provider] - Follow up tomorrow GISELL BARNHART MD [ACTIVE STAFF] - Follow up as needed
[2019-12-15 11:07] LABS: APPEARANCE,URINE CLEAR; BILIRUBIN,URINE NEGATIVE (NEGATIVE); COLOR,URINE STRAW; GLUCOSE, URINE NEGATIVE (NEGATIVE); KETONES,URINE NEGATIVE (NEGATIVE); LEUKOCYTE ESTERASE,URINE TRACE (NEGATIVE); NITRITE,URINE NEGATIVE (NEGATIVE); PROTEIN,URINE NEGATIVE (NEGATIVE); URINE SPECIFIC GRAVITY 1.005; UROBILINOGEN,URINE NEGATIVE mg/dL (<2.0)
[2019-12-15 11:14] LABS: ALKALINE PHOSPHATASE 68 U/L (38-126); ANION GAP 9 (5-19); ASPARTATE AMINO TRANSFERASE 31 U/L (17-59); BILIRUBIN,DIRECT 0.4 mg/dL (0.0-0.4); BILIRUBIN,TOTAL 0.4 mg/dL (0.2-1.3); BLOOD UREA NITROGEN 12 mg/dL (7-20); CALCIUM 9.3 mg/dL (8.4-10.2); CARBON DIOXIDE 27 mmol/L (22-30); CHLORIDE 103 mmol/L (98-107); GLUCOSE 95 mg/dL (75-110); POTASSIUM 4.2 mmol/L (3.6-5.0); TOTAL PROTEIN 7.1 g/dL (6.3-8.2)
[2019-12-15] MEDS ORDERED: NORMAL SALINE 1000 ML 1,000 ML IV ONE ×2 (11:23→13:04)
[2019-12-15] MEDS ORDERED: PROCHLORPERAZINE MALEATE 10 MG TABLET PO ONE (11:23)
[2019-12-15] MEDS ORDERED: LIDOCAINE 2% VISCOUS SOLN 15 ML UDCUP PO ONE (11:24)
[2019-12-15] MEDS ORDERED: MAG HYDROX/AL HYDROX/SIMETH SUSP 30 ML UDCUP PO ONE (11:24)
[2019-12-15] MEDS ORDERED: KETOROLAC TROMETHAMINE INJ/PF 30 MG/1 ML SDV IV ONE (11:24)
--- NOTE | 2019-12-15 12:16 | RADIOLOGY REPORT (SQ) ---
EXAM DESCRIPTION: CT ABD/PELVIS WITH IV ONLY COMPLETED DATE/TIME: 12/15/2019 10:53 am REASON FOR STUDY: epigastric/flank pain x 5 days ? colitis. Diffuse abdominal pain. COMPARISON: CT abdomen and pelvis, 10/26/2019. . TECHNIQUE: CT scan of the abdomen and pelvis performed using helical scanning technique with dynamic intravenous contrast injection. No oral contrast. Images reviewed with lung, soft tissue, and bone windows. Reconstructed coronal and sagittal MPR images reviewed. Delayed images for evaluation of the urinary system also acquired. All images stored on PACS. All CT scanners at this facility use dose modulation, iterative reconstruction, and/or weight based d osing when appropriate to reduce radiation dose to as low as reasonably achievable (ALARA). [facility]: Dose Right [facility]: CareDose [facility]: Dose Right [facility]: Teradose 4D [facility]: [employer] CONTRAST TYPE AND DOSE: contrast/concentration: Isovue 350.00 mg/ml; Total Contrast Delivered: 79.0 ml; Total Saline Delivered: 68.0 ml RENAL FUNCTION: GFR > 60. RADIATION DOSE: CT Rad equipment meets quality standard of care and radiation dose reduction techniq ues were employed. CTDIvol: 5.8 - 7.8 mGy. DLP: 762 mGy-cm.. LIMITATIONS: None. FINDINGS: LOWER CHEST: No significant findings. No nodules or infiltrates. LIVER: The liver has normal size and contour. There is background mild diffuse hepatic steatosis wit h focal areas of geographic fatty infiltration at the gallbladder fossa and inferior right hepatic lo be. No suspicious hepatic mass. Hepatic and portal veins are patent. No biliary ductal dilation. SPLEEN: Normal size. No focal lesions. PANCREAS: No masses. No significant calcifications. No adjacent inflammation or peripancreatic fluid collections. Pancreatic duct not dilated. GALLBLADDER: Surgically absent. ADRENAL GLANDS: No significant masses or asymmetry. RIGHT KIDNEY AND URETER: No solid masses. No significant calcifications. No hydronephrosis or hyd roureter. LEFT KIDNEY AND URETER: No solid masses. No significant calcifications. No hydronephrosis or hydr oureter. AORTA AND VESSELS: No aneurysm. No dissection. Renal arteries, SMA, celiac without stenosis. RETROPERITONEUM: No retroperitoneal adenopathy, hemorrhage or masses. BOWEL AND PERITONEAL CAVITY: There is a large amount of stool throughout the colon and rectum. No rubin wel obstruction. No bowel wall thickening. No significant inflammatory change. No ascites or pneum operitoneum. APPENDIX: Normal. PELVIS: No mass. No free fluid. Normal bladder. ABDOMINAL WALL: No masses. No hernias. BONES: No significant or acute findings. OTHER: No other significant finding. IMPRESSION: 1. Large amount of stool throughout the colon which can be constipation. No evidence of acute inflam matory change to suggest colitis. 2. Mild to moderate hepatic steatosis. TECHNICAL DOCUMENTATION: JOB ID: [id number] Quality ID # [id number]: Final reports with documentation of one or more dose reduction techniques (e.g., Au tomated exposure control, adjustment of the mA and/or kV according to patient size, use of iterative reconstruction technique) 2010 [employer]- All Rights Reserved Reading location - IP/workstation name: [email or web address]
--- NOTE | 2019-12-15 13:03 | EKG REPORT ---
SEVERITY:- OTHERWISE NORMAL ECG - SINUS RHYTHM BORDERLINE LEFT AXIS DEVIATION : Confirmed by: Ludwig Liu MD 15-Dec-2019 13:02:48
[2019-12-15] MEDS ORDERED: VANCOMYCIN HCL INJ 1000 MG VIAL IV ONE (13:42)
[2019-12-15 15:56] VITALS: BP 139/94
== END 2019-12-15 15:57 | disposition home or self-care (01) ==
LOC: ER 10:01
DX: K52.9 Noninfective gastroenteritis and colitis, unspecified (principal); E86.0 Dehydration; R10.9 Unspecified abdominal pain; R10.13 Epigastric pain; K76.0 Fatty (change of) liver, not elsewhere classified; R11.10 Vomiting, unspecified; F17.200 Nicotine dependence, unspecified, uncomplicated; Z90.49 Acquired absence of other specified parts of digestive tract; Z88.6 Allergy status to analgesic agent; Z88.5 Allergy status to narcotic agent; Z88.1 Allergy status to other antibiotic agents; Z88.8 Allergy status to other drugs, medicaments and biological substances
CPT/HCPCS: 93005; 99284; 96361; 96375; 96365; 96366; 36415; 87040; 83605; 83690; 85025; 87077; 80053; 81001; 87186; 87150 ×26; 74177; 93010; J3490; J1885; S0183; J7030; J3370

== ENCOUNTER 2019-12-17 02:30 | Emergency (ER) | payer OTHER ==
[2019-12-17 02:38] VITALS: BP 151/99
[2019-12-17] MEDS ORDERED: NORMAL SALINE 500 ML IV ONE (03:15)
[2019-12-17 03:21] LABS: ABSOLUTE BASOPHILS # (AUTO) 0.1 10^3/uL (0.0-0.2); ABSOLUTE EOSINOPHILS # (AUTO) 0.1 10^3/uL (0.0-0.6); ABSOLUTE LYMPHOCYTES (AUTO) 1.7 10^3/uL (0.5-4.7); ABSOLUTE MONOCYTES (AUTO) 0.7 10^3/uL (0.1-1.4); ABSOLUTE NEUT (AUTO) 10.7 10^3/uL (1.7-8.2); BASOPHILS % (AUTO) 0.9 % (0-2); HEMATOCRIT 45.5 % (37.9-51.0); HEMOGLOBIN 15.4 g/dL (13.5-17.0); LYMPHOCYTES % (AUTO) 13.1 % (13-45); MEAN CORPUSCULAR HEMOGLOBIN 32.1 pg (27.0-33.4); MEAN CORPUSCULAR HGB CONC 33.8 g/dL (32.0-36.0); MEAN CORPUSCULAR VOLUME 95 fl (80-97); MONOCYTES % (AUTO) 5.1 % (3-13); PLATELET COUNT 282 10^3/uL (150-450); RED BLOOD COUNT 4.79 10^6/uL (4.35-5.55); RED CELL DISTRIBUTION WIDTH 13.6 % (11.5-14.0); SEGMENTED NEUTROPHILS % (AUTO) 79.9 % (42-78); TOTAL CELLS COUNTED % (AUTO) 100 %; WHITE BLOOD COUNT 13.3 10^3/uL (4.0-10.5)
[2019-12-17 03:37] LABS: ALKALINE PHOSPHATASE 59 U/L (38-126); ANION GAP 10 (5-19); ASPARTATE AMINO TRANSFERASE 48 U/L (17-59); BILIRUBIN,TOTAL 0.5 mg/dL (0.2-1.3); BLOOD UREA NITROGEN 5 mg/dL (7-20); CALCIUM 9.3 mg/dL (8.4-10.2); CARBON DIOXIDE 23 mmol/L (22-30); CHLORIDE 106 mmol/L (98-107); GLUCOSE 108 mg/dL (75-110); POTASSIUM 4.1 mmol/L (3.6-5.0); TOTAL PROTEIN 6.7 g/dL (6.3-8.2)
[2019-12-17] MEDS ORDERED: PROCHLORPERAZINE EDISYLATE INJ 10 MG/2 ML VIAL IV ONE (04:51)
--- NOTE | 2019-12-17 05:00 | ER Document Report ---
ED General - General Chief Complaint: Abdominal Pain Stated Complaint: FLANK PAIN Time Seen by Provider: 12/17/19 04:26 Primary Care Provider: PATTI RANKIN PA [Primary Care Provider] - Follow up as needed TRAVEL OUTSIDE OF THE [place] IN LAST 30 DAYS: No - HPI Notes: Patient is a 49-year-old male presenting with complaint of generalized abdominal pain as well as nausea and vomiting. Patient states that he is been having problems with abdominal pain for a couple of months now. Patient states he was recently seen at [facility] [place] and diagnosed with colitis for which he was started on Septra and Flagyl. Patient states that he thinks that the Cipro and Flagyl are making symptoms worse and has stopped taking them. Patient was seen here 2 days ago with the same complaints and had a CT of the abdomen that was only significant for constipation. There is no evidence of colitis on the CAT scan. However the patient had some leukocytosis and patient was given a gram of vancomycin IV. Patient states his symptoms are not improved and has been taking Zofran for nausea without relief of symptoms. - Related Data Allergies/Adverse Reactions: acetaminophen [From Vicodin] Allergy (Verified 12/15/19 12:46) cephalexin [From Keflex] Allergy (Verified 12/15/19 12:46) ciprofloxacin [From Cipro] Allergy (Verified 12/15/19 12:46) hydrocodone [From Vicodin] Allergy (Verified 12/15/19 12:46) ibuprofen [From Advil] Allergy (Verified 12/15/19 12:46) metoclopramide [From Reglan] Allergy (Verified 12/15/19 12:46) morphine Allergy (Verified 12/15/19 12:46) Home Medications: zofran Past Medical History - Social History Smoking Status: Current Every Day Smoker Family History: Reviewed & Not Pertinent Patient has suicidal ideation: No Patient has homicidal ideation: No Renal/ Medical History: Denies: Hx Peritoneal Dialysis Past Surgical History: Reports: Hx Cholecystectomy, Hx Orthopedic Surgery - L4 L5 lamenectomy - Immunizations Hx Diphtheria, Pertussis, Tetanus Vaccination: Yes Review of Systems - Review of Systems Constitutional: No symptoms reported EENT: No symptoms reported Cardiovascular: No symptoms reported Respiratory: No symptoms reported Gastrointestinal: See HPI Genitourinary: No symptoms reported Male Genitourinary: No symptoms reported Musculoskeletal: No symptoms reported Skin: No symptoms reported Hematologic/Lymphatic: No symptoms reported Neurological/Psychological: No symptoms reported -: Yes All other systems reviewed and negative Physical Exam - Vital signs Vitals: Temp Pulse Resp BP Pulse Ox 98.4 F 79 18 151/99 H 100 12/17/19 02:37 12/17/19 02:37 12/17/19 02:37 12/17/19 02:37 12/17/19 02:37 - Notes Notes: CONSTITUTIONAL [Vital signs reviewed, Patient appears comfortable, Alert and oriented X 3, Normal stature.] HEAD [Atraumatic, Normocephalic.] EYES [Eyes are normal to inspection, No discharge from eyes, Extraocular muscles intact, Sclera are normal, Conjunctiva are normal.] ENT [Ears normal to inspection, Nose examination normal, Posterior pharynx normal, Mouth normal to inspection.] NECK [Normal ROM, No jugular venous distention, No meningeal signs, no carotid bruit.] RESPIRATORY CHEST [Chest is nontender, Breath sounds normal, No respiratory distress.] CARDIOVASCULAR [RRR, No murmurs, Normal S1 S2, No rub, No gallop.] ABDOMEN [Abdomen is nontender, No pulsatile masses, No other masses, Bowel sounds normal, No distension, No peritoneal signs, No hernias.] BACK [There is no CVA Tenderness, There is no tenderness to palpation, Normal inspection.] UPPER EXTREMITY [Inspection normal, No cyanosis, No clubbing, No edema, 2+ radial pulses.] LOWER EXTREMITY [Inspection normal, No cyanosis, No clubbing, No edema, No calf tenderness, 2+ femoral pulses.] NEURO [No focal motor deficits, No focal sensory deficits, Speech normal.] SKIN [Skin is warm, Skin is dry, Skin is normal color.] LYMPHATIC [No adenopathy in neck.] PSYCHIATRIC [Normal affect. ] Course - Re-evaluation Re-evalutation: 12/17/19 05:51 This MD was informed by patient's nurse that patient apparently has eloped after taking out his own IV. - Vital Signs Vital signs: Temp Pulse Resp BP Pulse Ox 98.4 F 79 18 151/99 H 100 12/17/19 02:37 12/17/19 02:37 12/17/19 02:37 12/17/19 02:37 12/17/19 02:37 - Laboratory Result Diagrams: 12/17/19 03:00 12/17/19 03:00 Laboratory results interpreted by me: 12/17/19 12/17/19 12/17/19 03:00 03:00 04:50 WBC 13.3 H Absolute Neuts (auto) 10.7 H Seg Neutrophils % 79.9 H BUN 5 L Urine Ketones 20 H Ur Leukocyte Esterase SMALL H Discharge - Discharge Clinical Impression: Abdominal pain Qualifiers: Abdominal location: unspecified location Qualified Code(s): R10.9 - Unspecified abdominal pain Disposition: ELOPED Referrals: PATTI RANKIN PA [Primary Care Provider] - Follow up as needed
[2019-12-17 05:12] LABS: APPEARANCE,URINE CLEAR; BILIRUBIN,URINE NEGATIVE (NEGATIVE); COLOR,URINE YELLOW; GLUCOSE, URINE NEGATIVE (NEGATIVE); KETONES,URINE 20 mg/dL (NEGATIVE); LEUKOCYTE ESTERASE,URINE SMALL (NEGATIVE); NITRITE,URINE NEGATIVE (NEGATIVE); PROTEIN,URINE NEGATIVE (NEGATIVE); URINE SPECIFIC GRAVITY 1.014; UROBILINOGEN,URINE NEGATIVE mg/dL (<2.0)
[2019-12-17 06:20] LABS: URINE AMPHETAMINES SCREEN NEGATIVE; URINE BARBITURATES SCREEN NEGATIVE; URINE BENZODIAZEPINES SCREEN NEGATIVE; URINE COCAINE SCREEN NEGATIVE; URINE MARIJUANA (THC) SCREEN NEGATIVE; URINE PHENCYCLIDINE SCREEN NEGATIVE
[2019-12-17 06:29] LABS: URINE METHADONE SCREEN UNCONFIRMED POSITIVE
== END 2019-12-17 05:54 | disposition left against medical advice (07) ==
LOC: ER 02:30
DX: R10.84 Generalized abdominal pain (principal); R11.2 Nausea with vomiting, unspecified; K59.00 Constipation, unspecified; F17.200 Nicotine dependence, unspecified, uncomplicated; Z88.6 Allergy status to analgesic agent; Z88.3 Allergy status to other anti-infective agents; Z90.49 Acquired absence of other specified parts of digestive tract
CPT/HCPCS: 99281; 96361; 96374; 36415; 83690; 85025; 80053; 81001; 80307; J0780; J7040

== ENCOUNTER 2020-02-13 10:51 | Emergency (ER) | payer OTHER ==
[2020-02-13] MEDS ORDERED: ONDANSETRON HCL INJ/PF 4 MG/2 ML SDV IV ONE (11:01)
[2020-02-13] MEDS ORDERED: NORMAL SALINE 1000 ML 1,000 ML IV ONE (11:01)
--- NOTE | 2020-02-13 11:01 | ER Document Report ---
ED Medical Screen (RME) - General Chief Complaint: Dizziness Stated Complaint: DIZZINESS/LIGHT HEADED Time Seen by Provider: 02/13/20 10:55 Primary Care Provider: GILES MIGUEL MD [Primary Care Provider] - Follow up as needed Mode of Arrival: Ambulatory Information source: Patient Notes: 49-year-old male presented to ED for complaint of dizziness lightheadedness and nausea all week. He states he has been drinking several bottles of water daily and only urinating once a day. He states it is concentrated and cloudy. He states he is trying to quit working and does not drink alcohol or do any illicit drugs. He is alert oriented respirations regular nonlabored speaking in full sentences. I have greeted and performed a rapid initial assessment of this patient. A comprehensive ED assessment and evaluation of the patient, analysis of test results and completion of medical decision making process will be conducted by an additional ED providers. TRAVEL OUTSIDE OF THE [place] IN LAST 30 DAYS: No - Related Data Allergies/Adverse Reactions: acetaminophen [From Vicodin] Allergy (Verified 12/15/19 12:46) cephalexin [From Keflex] Allergy (Verified 12/15/19 12:46) ciprofloxacin [From Cipro] Allergy (Verified 12/15/19 12:46) hydrocodone [From Vicodin] Allergy (Verified 12/15/19 12:46) ibuprofen [From Advil] Allergy (Verified 12/15/19 12:46) metoclopramide [From Reglan] Allergy (Verified 12/15/19 12:46) morphine Allergy (Verified 12/15/19 12:46) Past Medical History Renal/ Medical History: Denies: Hx Peritoneal Dialysis Past Surgical History: Reports: Hx Cholecystectomy, Hx Orthopedic Surgery - L4 L5 lamenectomy - Immunizations Hx Diphtheria, Pertussis, Tetanus Vaccination: Yes Doctor's Discharge - Discharge Referrals: GILES MIGUEL MD [Primary Care Provider] - Follow up as needed
--- NOTE | 2020-02-13 11:26 | RADIOLOGY REPORT (SQ) ---
EXAM DESCRIPTION: CHEST 2 VIEWS IMAGES COMPLETED DATE/TIME: 02/13/2020 11:17 am REASON FOR STUDY: Dizziness lightheaded COMPARISON: None. EXAM PARAMETERS: NUMBER OF VIEWS: Two views. TECHNIQUE: PA and lateral views of the chest were obtained. RADIATION DOSE: NA LIMITATIONS: None. FINDINGS: LUNGS AND PLEURA: No consolidation, pleural effusion or pneumothorax. MEDIASTINUM AND HILAR STRUCTURES: No mediastinal or hilar contour abnormality. HEART AND VASCULAR STRUCTURES: The cardiac silhouette and pulmonary vasculature are within normal perry its. BONES: No acute findings. HARDWARE: Cholecystectomy clips. OTHER: No other finding. IMPRESSION: No acute cardiopulmonary process. TECHNICAL DOCUMENTATION: JOB ID: [id number] 2010 [employer] All Rights Reserved Reading location - IP/workstation name: [email or web address]
--- NOTE | 2020-02-13 11:42 | EKG REPORT ---
SEVERITY:- OTHERWISE NORMAL ECG - SINUS RHYTHM BORDERLINE LEFT AXIS DEVIATION : Confirmed by: Ludwig Liu MD 13-Feb-2020 11:41:43
[2020-02-13 11:46] LABS: ABSOLUTE BASOPHILS # (AUTO) 0.1 10^3/uL (0.0-0.2); ABSOLUTE EOSINOPHILS # (AUTO) 0.1 10^3/uL (0.0-0.6); ABSOLUTE MONOCYTES (AUTO) 0.4 10^3/uL (0.1-1.4); BASOPHILS % (AUTO) 0.5 % (0-2); EOSINOPHILS % (AUTO) 0.4 % (0-6); HEMATOCRIT 42.6 % (37.9-51.0); HEMOGLOBIN 15.2 g/dL (13.5-17.0); LYMPHOCYTES % (AUTO) 12.6 % (13-45); MEAN CORPUSCULAR HEMOGLOBIN 32.5 pg (27.0-33.4); MEAN CORPUSCULAR HGB CONC 35.6 g/dL (32.0-36.0); MEAN CORPUSCULAR VOLUME 91 fl (80-97); MONOCYTES % (AUTO) 2.6 % (3-13); PLATELET COUNT 270 10^3/uL (150-450); RED BLOOD COUNT 4.67 10^6/uL (4.35-5.55); RED CELL DISTRIBUTION WIDTH 13.5 % (11.5-14.0); SEGMENTED NEUTROPHILS % (AUTO) 83.9 % (42-78); TOTAL CELLS COUNTED % (AUTO) 100 %; WHITE BLOOD COUNT 15.5 10^3/uL (4.0-10.5)
[2020-02-13 11:56] LABS: ALBUMIN 4.5 g/dL (3.5-5.0); ALKALINE PHOSPHATASE 76 U/L (38-126); ANION GAP 9 (5-19); ASPARTATE AMINO TRANSFERASE 27 U/L (17-59); BILIRUBIN,TOTAL 0.3 mg/dL (0.2-1.3); BLOOD UREA NITROGEN 28 mg/dL (7-20); CALCIUM 9.4 mg/dL (8.4-10.2); CARBON DIOXIDE 27 mmol/L (22-30); CHLORIDE 101 mmol/L (98-107); CREATINE KINASE 43 U/L (55-170); GLUCOSE 109 mg/dL (75-110); POTASSIUM 4.3 mmol/L (3.6-5.0); TOTAL PROTEIN 7.4 g/dL (6.3-8.2)
[2020-02-13 12:48] LABS: APPEARANCE,URINE CLEAR; BILIRUBIN,URINE NEGATIVE (NEGATIVE); COLOR,URINE YELLOW; GLUCOSE, URINE NEGATIVE (NEGATIVE); KETONES,URINE NEGATIVE (NEGATIVE); PROTEIN,URINE NEGATIVE (NEGATIVE); URINE SPECIFIC GRAVITY 1.021; UROBILINOGEN,URINE NEGATIVE mg/dL (<2.0)
--- NOTE | 2020-02-13 13:13 | RADIOLOGY REPORT (SQ) ---
EXAM DESCRIPTION: CT HEAD WITHOUT IMAGES COMPLETED DATE/TIME: 02/13/2020 12:59 pm REASON FOR STUDY: dizziness COMPARISON: None. TECHNIQUE: Axial images acquired through the brain without intravenous contrast. Images reviewed wi th bone, brain and subdural windows. Additional sagittal and coronal reconstructions were generated. Images stored on PACS. All CT scanners at this facility use dose modulation, iterative reconstruction, and/or weight based d osing when appropriate to reduce radiation dose to as low as reasonably achievable (ALARA). [facility]: Dose Right [facility]: CareDose [facility]: Dose Right [facility]: Teradose 4D [facility]: [employer] RADIATION DOSE: CT Rad equipment meets quality standard of care and radiation dose reduction techniq ues were employed. CTDIvol: 53.2 mGy. DLP: 1097 mGy-cm. LIMITATIONS: None. FINDINGS: Status post suboccipital craniectomy. There is no tonsillar herniation. There is no acute intracranial hemorrhage, vascular territorial infarct, extra-axial fluid collection , mass effect or midline shift. The pepper-white matter differentiation is preserved. There is no eff acement of the cerebral sulci or basal subarachnoid cisterns. The caliber the ventricles is concorda nt with the degree of sulcation ; there is no hydrocephalus. The orbits and globes are intact. The mucosal lining of the right maxillary sinus is mildly thickene d. There is no paranasal sinus air-fluid level. There is no calvarial fracture. IMPRESSION: Status post suboccipital craniectomy. There is no acute intracranial abnormality. EVIDENCE OF ACUTE STROKE: NO. COMMENT: Quality ID # [id number]: Final reports with documentation of one or more dose reduction techniques (e.g., Automated exposure control, adjustment of the mA and/or kV according to patient size, use of iterative reconstruction technique) TECHNICAL DOCUMENTATION: JOB ID: [id number] 2010 [employer]- All Rights Reserved Reading location - IP/workstation name: [email or web address]
[2020-02-13 13:14] LABS: URINE AMPHETAMINES SCREEN NEGATIVE; URINE BARBITURATES SCREEN NEGATIVE; URINE BENZODIAZEPINES SCREEN NEGATIVE; URINE COCAINE SCREEN NEGATIVE; URINE MARIJUANA (THC) SCREEN NEGATIVE; URINE PHENCYCLIDINE SCREEN NEGATIVE
[2020-02-13 13:17] LABS: URINE METHADONE SCREEN UNCONFIRMED POSITIVE
[2020-02-13] MEDS ORDERED: MECLIZINE HCL 25 MG TABLET PO ONE (13:58)
--- NOTE | 2020-02-13 14:07 | ER Document Report ---
Entered by JOSEPHINE CABALLERO SCRIBE 02/13/20 [id number] Acting as scribe for:ALICE MICHELE MD ED General - General Chief Complaint: Dizziness Stated Complaint: DIZZINESS/LIGHT HEADED Time Seen by Provider: 02/13/20 10:55 Primary Care Provider: GILES MIGUEL MD [NO LOCAL MD] - Follow up as needed Mode of Arrival: Ambulatory Information source: Patient Notes: This 49-year-old right-handed male presents to the emergency department compl aining of dizziness for the past week. Patient states that his dizziness is worse with movement, standing up and looking around quickly. Patient reports associated nausea. Patient reports that he has been drinking a lot of fluids and has only been urinating once a day. Patient remarks that this is abnormal for him as he usually urinated 4-5 times per day. Patient reports that his urine has been dark and cloudy. Patient reports increase trembling of his right upper extremity and right lower extremity which comes and goes. Patient reports a rash that comes and goes. Patient denies fever, cough and vomiting. Patient denies working outside. Patient mentions that he has Zofran which he uses as needed. TRAVEL OUTSIDE OF THE [place] IN LAST 30 DAYS: No - Related Data Allergies/Adverse Reactions: cephalexin [From Keflex] Allergy (Verified 12/15/19 12:46) ciprofloxacin [From Cipro] Allergy (Verified 02/13/20 11:03) hydrocodone [From Vicodin] Allergy (Verified 02/13/20 11:03) ibuprofen [From Advil] Allergy (Verified 02/13/20 11:03) metoclopramide [From Reglan] Allergy (Verified 02/13/20 11:03) morphine Allergy (Verified 02/13/20 11:03) hydrocod Allergy (Uncoded 02/13/20 11:03) Home Medications: Zofran Past Medical History - General Information source: Patient - Social History Smoking Status: Former Smoker - Quit a few days ago Chew tobacco use (# tins/day): No Frequency of alcohol use: None Drug Abuse: None Family History: Reviewed & Not Pertinent Patient has homicidal ideation: No - Medical History Medical History: Negative Past Surgical History: Reports: Hx Cholecystectomy, Hx Orthopedic Surgery - L4 L5 lamenectomy - Immunizations Hx Diphtheria, Pertussis, Tetanus Vaccination: Yes Review of Systems - Review of Systems Constitutional: See HPI. denies: Fever EENT: No symptoms reported Cardiovascular: See HPI, Dizziness, Lightheaded Respiratory: See HPI. denies: Cough Gastrointestinal: See HPI, Nausea. denies: Vomiting Genitourinary: See HPI, Other - Less urination than usual. Male Genitourinary: No symptoms reported Musculoskeletal: No symptoms reported Skin: See HPI, Rash Hematologic/Lymphatic: No symptoms reported Neurological/Psychological: No symptoms reported -: Yes All other systems reviewed and negative Physical Exam - Vital signs Vitals: Temp 98.3 F 02/13/20 10:56 - Notes Notes: Physical Exam: General: Alert, appears well. HEENT: Normocephalic. Atraumatic. PERRL. Extraocular movements intact. Oropharynx clear. Mild nystagmus with lateral gaze. TMs are non-bulging with minimal clear fluid noted. Neck: Supple. Non-tender. Respiratory: No respiratory distress. Clear and equal breath sounds bilaterally. Cardiovascular: Regular rate and rhythm. Abdominal: Normal Inspection. Non-tender. No distension. Normal Bowel Sounds. Back: No gross abnormalities. Extremities: Moves all four extremities. Upper extremities: Ataxia and weakness of upper extremities; right greater than left. Normal ROM. Lower extremities: Ataxia and weakness of right lower extremity. No edema. Normal ROM. Neurological: Normal cognition. AAOx4. Normal speech. Psychological: Normal affect. Normal Mood. Skin: Warm. Dry. Normal color. Course - Re-evaluation Re-evalutation: 02/13/20 14:02 Patient reports he feels better now that he is received a liter fluid and has been drinking a liter of diluted lemonade with water. - Vital Signs Vital signs: Temp Pulse Resp BP Pulse Ox 98.3 F 81 15 130/91 H 98 02/13/20 10:56 02/13/20 12:45 02/13/20 13:00 02/13/20 13:00 02/13/20 13:00 02/13/20 14:02 Vital signs are stable - Laboratory Result Diagrams: 02/13/20 11:28 02/13/20 11:28 Laboratory results interpreted by me: 02/13/20 02/13/20 11:28 11:28 WBC 15.5 H Lymph % (Auto) 12.6 L [place] % (Auto) 2.6 L Absolute Neuts (auto) 13.0 H Seg Neutrophils % 83.9 H BUN 28 H Creatine Kinase 43 L 02/13/20 14:02 Elevated white blood cell count without signs of infection. - Diagnostic Test Radiology reviewed: Image reviewed, Reports reviewed Radiology results interpreted by me: 02/13/20 14:03 Chest x-ray no acute process CT head shows partial craniectomy. Otherwise no evidence of stroke. - EKG Interpretation by Me Additional EKG results interpreted by me: 02/13/20 14:04 Twelve-lead EKG done 1114 shows normal sinus rhythm rate of 67 borderline left axis deviation. Discharge - Discharge Clinical Impression: Dehydration, Labyrinthitis of both ears Condition: Stable Disposition: HOME, SELF-CARE Instructions: Labyrinthitis ([facility]), Meclizine ([facility]) Additional Instructions: Dehydration Dehydration can result from vomiting or diarrhea, fever, or decreased intake of fluids. If severe, hospitalization and intravenous fluids may be required. Most cases are treated at home with fluids by mouth. For the next 24 hours, drink lots of clear fluids. In mild cases, this can be soda pop or sports drinks. For more severe dehydration, the doctor may recommend special fluids such as Pedialyte or Lytren. Try to get three liters (3 quarts) of fluid per day. If vomiting occurs, continue to drink the fluids frequently (every 15 to 20 minutes), but in small amounts (one or two ounces). Depending on the type of dehydration, the doctor may prescribe antinausea medicine or potassium replacements. Call the doctor or return for re-examination if you become progressively weak, vomit repeatedly, or have other new symptoms. Referrals: GILES MIGUEL MD [NO LOCAL MD] - Follow up as needed ED NIH Stroke Scale - NIH Stroke Scale *: 1. NIH scale should be completed with appropriate accompanying assessment tools. *: 2. The NIH should reflect what the patient is capable of doing and should not be coached by the clinician. 1a. Level of Consciousness: 0=Alert;keenly responsive -: 1=Drowsy -: 2=Obtunded -: 3=Coma/unresponsive or reflex to noxious stimuli. 1a. Responses: 0 1b. Orientation Questions: a. What month is it? -: b. How old are you? -: 0=Answers both questions correctly. -: 1=Answers one question correctly or patient is intubated or has orotracheal trauma. -: 2=Answers neither question correctly. 1b. Responses: 0 1c. Response to commands: a. Open and close eyes? -: b. [employer] Dispatcher and release hand? -: Credit is given despite weakness. Demonstration of task is permitted. Substitute command if hands cannot be used. -: 0=Performs both tasks correctly -: 1=Performs one task correctly -: 2=Performs neither task correctly 1c. Responses: 0 2. Gaze: Establish eye contact and instruct patient to "Follow my finger" -: 0=Normal -: 1=Partial gaze palsy. Gaze is abnormal in one or both eyes, but where forced deviation or total gaze paresis is not present. -: 2=Forced deviation or total gaze paresis. 2. Responses: 0 3. Visual Mcintosh: Sees fingers in all four quadrants. -: 0=No visual loss. -: 1=Partial hemianopsia. -: 2=Complete hemianopsia. -: 3=Bilateral hemianopsia (including Cortical blindness) 3. Responses: 0 4. Facial Movement: Instruct patient to: -: a. Show me your teeth -: b. Raise your eyebrows -: c. Close your eyes -: d. Smile -: 0=Normal symmetrical movement -: 1=Minor paralysis (flattened nasolabial fold, asymmetry on smiling). -: 2=Partial paralysis (total or near total paralysis of lower face). -: 3=Complete paralysis of upper and lower face 4. Responses: 0 5. Motor functions (left arm): Alternate sides and extend each arm with palms down (90 degrees if sitting or 45 degrees for supine). -: 0=No drift;limb holds for full 10 seconds. -: 1=Drift; limb holds but drifts down before full 10 seconds, but does not hit bed. -: 2=Some effort against gravity; limb cannot get to or maintain position. -: 3=No effort against gravity; limb falls. -: 4=No movement. -: UN=Amputation, joint fusion, explain in comments. 5. Responses (left arm): 0 5. Motor Functions (right arm): Alternate sides and extend each arm with palms down (90 degrees if sitting or 45 degrees for supine). -: 0=No drift;limb holds for full 10 seconds. -: 1=Drift; limb holds but drifts down before full 10 seconds, but does not hit bed. -: 2=Some effort against gravity; limb cannot get to or maintain position. -: 3=No effort against gravity; limb falls. -: 4=No movement. -: UN=Amputation, joint fusion, explain in comments. 6. Motor Functions (left leg): With patient lying supine, alternate sides and extend each leg (30 degrees always while supine). -: 0=No drift, leg holds position for full 5 seconds -: 1=Drift; leg falls before full 5 seconds but does not hit bed. -: 2=Some effort against gravity, leg falls to bed but some effort against gravi ty. -: 3=No effort against gravity, leg falls to bed immediately. -: 4=No movement. -: UN=Amputation, joint fusion; explain in comments. 6. Responses (left leg): 0 6. Motor Functions (right leg): With patient lying supine, alternate sides and extend each leg (30 degrees always while supine). -: 0=No drift, leg holds position for full 5 seconds -: 1=Drift; leg falls before full 5 seconds but does not hit bed. -: 2=Some effort against gravity, leg falls to bed but some effort against gravity. -: 3=No effort against gravity, leg falls to bed immediately. -: 4=No movement. -: UN=Amputation, joint fusion; explain in comments. 6. Responses (right leg): 0 7. Limb Ataxia: With eyes open instruct patient to: -: a. "Touch your finger to your nose". -: b. "Touch your heel to your gallego" -: 0=Absent -: 1=Present in one limb. -: 2=Present in two limbs. -: UN=Amputation or joint fusion; explain in comments. 7. Responses: 1 7. If ataxia present choose as appropriate: Right arm, Right leg 8. Sensory: Test sensation using pinprick or noxious stimuli. Test as many body parts as possible. -: 0=Normal;no sensory loss -: 1=Mile to moderate sensory loss (patient feels pin prick but is less sharp on affected side). -: 2=Severe or total sensory loss. 9. Best Language: Instruct patient to: -: a. "Describe what you see in this picture." -: b. "Name the items in this picture." -: c. "Read these sentences." -: 0=No aphasia, normal -: 1=Mild to moderate aphasia. -: 2=Severe aphasia -: 3=Mute, global aphasia, no usable speech or auditory comprehension. 9. Responses: 0 10. Articulation, Dysarthia: Instruct patient to: -: "Read these words" or "Repeat these words" -: 0=Normal -: 1=Mild to moderate; patient may slur some words but can be understood without difficulty. -: 2=Severe; patients speech so slurred as to be unintelligible in the absence of dysphasia. -: UN=Intubated or other physical barrier, explain in comments. 10. Responses: 0 11. Extinction or inattention: 0=No abnormality -: 1= Visual, tactile, auditory, spatial, or personal inattention or extinction to bilateral simulation in one or the sensory modalities. -: 2=Profound ashley-inattention or ashley-inattention to more than one modality; does not recognize own hand. Total Score: 1 I personally performed the services described in the documentation, reviewed and edited the documentation which was dictated to the scribe in my presence, and it accurately records my words and actions.
[2020-02-13 15:15] VITALS: BP 128/84
== END 2020-02-13 15:20 | disposition home or self-care (01) ==
LOC: ER 10:51
DX: H83.03 Labyrinthitis, bilateral (principal); E86.0 Dehydration; R42 Dizziness and giddiness; Z88.6 Allergy status to analgesic agent; Z88.3 Allergy status to other anti-infective agents; Z90.49 Acquired absence of other specified parts of digestive tract
CPT/HCPCS: 93005; 99284; 96361; 96374; 36415; 82550; 83690; 84443; 85025; 80053; 81001; 84484; 80307; 71046; 70450; 93010; J2405; J7030

== ENCOUNTER 2020-02-20 12:47 | Emergency (ER) | payer OTHER ==
--- NOTE | 2020-02-20 13:15 | ER Document Report ---
ED Medical Screen (RME) - General Chief Complaint: Headache >24 hrs old Stated Complaint: HEADACHE,LIGHTHEADED Time Seen by Provider: 02/20/20 13:10 Primary Care Provider: JULIO CRAIN MD [Primary Care Provider] - Follow up as needed Mode of Arrival: Ambulatory Information source: Patient Notes: 49-year-old male patient with history of Chiari malformation presenting to the emergency department chief complaint of dizziness, lightheadedness and frequent falls. Patient reports symptoms ongoing for the last few weeks. Patient states he recently stopped taking methadone. Heart sounds S1-S2 present, no ectopy noted. Lung sounds clear and equal bilaterally. I have greeted and performed a rapid initial assessment of this patient. A comprehensive ED assessment and evaluation of the patient, analysis of test results and completion of the medical decision making process will be conducted by additional ED providers. I have specifically instructed the patient or family members with the patient to immediately return to any nursing staff should anything change in the patient's condition or with their chief complaint. TRAVEL OUTSIDE OF THE [place] IN LAST 30 DAYS: No - Related Data Allergies/Adverse Reactions: morphine Allergy (Intermediate, Verified 02/20/20 13:07) itching cephalexin [From Keflex] Allergy (Verified 12/15/19 12:46) ciprofloxacin [From Cipro] Allergy (Verified 02/13/20 11:03) gluten Allergy (Verified 02/20/20 13:07) hydrocodone [From Vicodin] Allergy (Verified 02/13/20 11:03) ibuprofen [From Advil] Allergy (Verified 02/13/20 11:03) metoclopramide [From Reglan] Allergy (Verified 02/13/20 11:03) Penicillins Adverse Reaction (Severe, Verified 02/20/20 13:07) GI upset Home Medications: meclizine, methadone, ambien prn Past Medical History - Social History Chew tobacco use (# tins/day): No Frequency of alcohol use: None Drug Abuse: None Renal/ Medical History: Denies: Hx Peritoneal Dialysis Past Surgical History: Reports: Hx Cholecystectomy, Hx Orthopedic Surgery - L4 L5 lamenectomy - Immunizations Hx Diphtheria, Pertussis, Tetanus Vaccination: Yes Physical Exam - Vital signs Vitals: Temp Pulse Resp BP Pulse Ox 99.0 F 89 18 180/92 H 100 02/20/20 12:50 02/20/20 12:50 02/20/20 12:50 02/20/20 12:50 02/20/20 12:50 Course - Vital Signs Vital signs: Temp Pulse Resp BP Pulse Ox 99.0 F 89 18 180/92 H 100 02/20/20 13:09 02/20/20 12:50 02/20/20 12:50 02/20/20 12:50 02/20/20 12:50 Doctor's Discharge - Discharge Referrals: JULIO CRAIN MD [Primary Care Provider] - Follow up as needed
--- NOTE | 2020-02-20 13:38 | ER Document Report ---
ED Headache - General Chief Complaint: Headache >24 hrs old Stated Complaint: HEADACHE,LIGHTHEADED Time Seen by Provider: 02/20/20 13:10 Primary Care Provider: JULIO CRAIN MD [Primary Care Provider] - Follow up as needed Mode of Arrival: Ambulatory Notes: 49-year-old man presents to the emergency department with a complaint of dizziness, falls, headache. He states that the symptoms began approximately 2 weeks ago. He has been seen in the emergency department approximately 1 week ago at that time a CT scan was performed and he was placed on meclizine. He has continued to have symptoms. Of interest surgery for Chiari malformation was done at [place] approximately 1 year ago. The patient states that his headache is occipital and also dizziness symptoms are similar to symptoms prior to his surgery. He also complains of increased shaking in the right arm and numbness and weakness in his legs. TRAVEL OUTSIDE OF THE [place] IN LAST 30 DAYS: No - Related Data Allergies/Adverse Reactions: morphine Allergy (Intermediate, Verified 02/20/20 13:07) itching cephalexin [From Keflex] Allergy (Verified 12/15/19 12:46) ciprofloxacin [From Cipro] Allergy (Verified 02/13/20 11:03) gluten Allergy (Verified 02/20/20 13:07) hydrocodone [From Vicodin] Allergy (Verified 02/13/20 11:03) ibuprofen [From Advil] Allergy (Verified 02/13/20 11:03) metoclopramide [From Reglan] Allergy (Verified 02/13/20 11:03) Penicillins Adverse Reaction (Severe, Verified 02/20/20 13:07) GI upset Home Medications: meclizine, methadone, ambien prn Past Medical History - General Information source: Patient - Social History Smoking Status: Current Every Day Smoker Chew tobacco use (# tins/day): No Frequency of alcohol use: None Drug Abuse: None Family History: Reviewed & Not Pertinent Patient has homicidal ideation: No Renal/ Medical History: Denies: Hx Peritoneal Dialysis Past Surgical History: Reports: Hx Cholecystectomy, Hx Orthopedic Surgery - L4 L5 lamenectomy - Immunizations Hx Diphtheria, Pertussis, Tetanus Vaccination: Yes Review of Systems - Review of Systems Notes: Constitutional: Negative for fever. HENT: Negative for sore throat. Eyes: Negative for visual changes. Cardiovascular: Negative for chest pain. Respiratory: Negative for shortness of breath. Gastrointestinal: Negative for abdominal pain, vomiting or diarrhea. Genitourinary: Negative for dysuria. Musculoskeletal: Negative for back pain. Skin: Negative for rash. Neurological: +headaches, +weakness, + numbness, + weakness. Shaking episode. 10 point ROS negative except as marked above and in HPI. Physical Exam - Vital signs Vitals: Temp Pulse Resp BP Pulse Ox 99.0 F 89 18 180/92 H 100 02/20/20 12:50 02/20/20 12:50 02/20/20 12:50 02/20/20 12:50 02/20/20 12:50 - Notes Notes: PHYSICAL EXAMINATION: Physical Exam: General: Well-nourished well-developed in no acute distress HEENT: NC/AT, pupils equal round and reactive to light, MM moist,nares clear, oropharynx clear, airway patent Neck: supple, no adenopathy, no masses. Good range of motion Lungs: clear, no wheezing, no rales no rhonchi CVS: Regular rate and rhythm no murmur gallop or rub Abdomen: Soft, active, nontender, no masses, no hepatosplenomegaly Ext: No edema, clubbing or cyanosis. Neuro: Alert and responsive, moving all 4 extremities on command, + tremulous right upper extremity, shaking in his left lower extremity, good strength in all 4 extremities and no focal sensory loss. Skin: Intact no open lesions, no rash PSYCH: Normal mood, normal affect. Course - Re-evaluation Re-evalutation: 02/20/20 16:21 Patient's MRI was unremarkable for brain tissue changes related to the [place] surgery. The postsurgical changes were noted however no other complications were acknowledged by the MRI. I have encouraged the patient to continue the meclizine, we will try a short course of steroid oral along with prescription anti-inflammatory medication. He will follow-up with neurologist as an outpatient per his scheduled appointment. - Vital Signs Vital signs: Temp Pulse Resp BP Pulse Ox 97.8 F 85 12 126/89 H 98 02/20/20 17:17 02/20/20 13:55 02/20/20 17:00 02/20/20 17:00 02/20/20 17:00 - Laboratory Result Diagrams: 02/20/20 13:37 02/20/20 13:37 Laboratory results interpreted by me: 02/20/20 02/20/20 13:37 13:37 WBC 12.2 H Absolute Neuts (auto) 9.6 H Seg Neutrophils % 78.2 H Glucose 115 H Discharge - Discharge Clinical Impression: Dizziness Headache Qualifiers: Headache type: unspecified Headache chronicity pattern: acute headache Intractability: not intractable Qualified Code(s): R51 - Headache Condition: Good Disposition: HOME, SELF-CARE Instructions: Dizziness ([facility]) Additional Instructions: Please take the medications as prescribed Decadron 4 mg twice daily x5 days, used diclofenac for pain and please follow-up with neurologist regarding your continued headache and dizziness. If your symptoms are worsening or if you have other concerns you may return to the emergency department for further evaluation. HOME CARE INSTRUCTIONS & INFORMATION: Thank you for choosing us for your medical needs. We hope you're satisfied with the care you received. After you leave, you must properly care for your problem and, at the same time, observe its progress. Any condition can change. Some illnesses can change rapidly over hours or days. If your condition worsens, return to the Emergency Department or see your physician promptly. ABOUT YOUR X-RAYS AND EKG'S: If you had an EKG or X-rays taken, they have been read by the Emergency Physician. The X-rays and EKG's will also be read by a Radiologist or Study Assistant within 24 hours. If discrepancies are noted, you will be notified by telephone. Please be certain the ED has a correct telephone number & address where you can be reached. Also, realize that some fractures or abnormalities do not show up on initial X-rays. If your symptoms continue, see your physician. ABOUT YOUR LABORATORY TEST: If you had laboratory tests, the results have been reviewed by the Emergency Physician. Some test results (for example cultures) may not be available for several days. You will be contacted if any test result shows you need additional treatment. Please be certain the ED has a correct telephone number and address where you can be reached. ABOUT YOUR MEDICATIONS: You will receive instructions on how to take your medicine on the prescription label you receive. Additional information may be provided by the Pharmacy. If you have questions afterwards, call the ED for clarification or further instructions. Some prescribed medications may cause drowsiness. Do not perform tasks such as driving a car or operating machinery without consulting your Pharmacist. If you feel you need a refill of pain medication, your condition will need re-evaluation. Please do not call for a refill of any medication. ABOUT YOUR SIGNATURE: Signature of this document acknowledges to followin. Understanding that you received emergency treatment and that you may be released before al medical problems are known or treated. Please be certain the ED has a correct phone number & address where you can be reached. 2. Acknowledgement that you will arrange for follow-up care as recommended. 3. Authorization for the Emergency Physician to provide information to your follow-up Physician in order to maximize your care. AT ANY TIME, IF YOUR SYMPTOMS CHANGE SIGNIFICANTLY OR WORSEN OR YOU DEVELOP NEW SYMPTOMS, RETURN TO THE EMERGENCY DEPARTMENT IMMEDIATELY FOR RE-EVALUATION. OUR GOAL IS TO PROVIDE EXCELLENT MEDICAL CARE! WE HOPE THAT WE HAVE MET YOUR EXPECTATIONS DURING YOUR EMERGENCY DEPARTMENT VISIT AND THAT YOU FEEL YOU HAVE RECEIVED EXCELLENT CARE! Prescriptions: Dexamethasone [Decadron 4 Mg Tablet] 4 mg PO BID #6 tablet Diclofenac Potassium 50 mg PO BID #15 tablet Referrals: JULIO CRAIN MD [Primary Care Provider] - Follow up as needed
[2020-02-20 13:53] LABS: ABSOLUTE BASOPHILS # (AUTO) 0.1 10^3/uL (0.0-0.2); ABSOLUTE LYMPHOCYTES (AUTO) 2.2 10^3/uL (0.5-4.7); ABSOLUTE MONOCYTES (AUTO) 0.4 10^3/uL (0.1-1.4); ABSOLUTE NEUT (AUTO) 9.6 10^3/uL (1.7-8.2); BASOPHILS % (AUTO) 0.5 % (0-2); EOSINOPHILS % (AUTO) 0.3 % (0-6); HEMATOCRIT 44.1 % (37.9-51.0); HEMOGLOBIN 15.5 g/dL (13.5-17.0); LYMPHOCYTES % (AUTO) 17.7 % (13-45); MEAN CORPUSCULAR HGB CONC 35.3 g/dL (32.0-36.0); MEAN CORPUSCULAR VOLUME 91 fl (80-97); MONOCYTES % (AUTO) 3.3 % (3-13); PLATELET COUNT 330 10^3/uL (150-450); RED BLOOD COUNT 4.86 10^6/uL (4.35-5.55); RED CELL DISTRIBUTION WIDTH 13.4 % (11.5-14.0); SEGMENTED NEUTROPHILS % (AUTO) 78.2 % (42-78); TOTAL CELLS COUNTED % (AUTO) 100 %; WHITE BLOOD COUNT 12.2 10^3/uL (4.0-10.5)
[2020-02-20 14:05] LABS: ALBUMIN 4.4 g/dL (3.5-5.0); ALKALINE PHOSPHATASE 69 U/L (38-126); ANION GAP 7 (5-19); ASPARTATE AMINO TRANSFERASE 20 U/L (17-59); BILIRUBIN,TOTAL 0.3 mg/dL (0.2-1.3); BLOOD UREA NITROGEN 11 mg/dL (7-20); CALCIUM 9.9 mg/dL (8.4-10.2); CARBON DIOXIDE 29 mmol/L (22-30); CHLORIDE 104 mmol/L (98-107); GLUCOSE 115 mg/dL (75-110); POTASSIUM 3.7 mmol/L (3.6-5.0); TOTAL PROTEIN 7.3 g/dL (6.3-8.2)
[2020-02-20 14:26] LABS: APPEARANCE,URINE CLEAR; BILIRUBIN,URINE NEGATIVE (NEGATIVE); COLOR,URINE YELLOW; GLUCOSE, URINE NEGATIVE (NEGATIVE); KETONES,URINE NEGATIVE (NEGATIVE); LEUKOCYTE ESTERASE,URINE NEGATIVE (NEGATIVE); NITRITE,URINE NEGATIVE (NEGATIVE); PROTEIN,URINE NEGATIVE (NEGATIVE); URINE SPECIFIC GRAVITY 1.005; UROBILINOGEN,URINE NEGATIVE mg/dL (<2.0)
[2020-02-20] MEDS ORDERED: ACETAMINOPHEN 325 MG TABLET PO ONE (14:33)
--- NOTE | 2020-02-20 15:38 | RADIOLOGY REPORT (SQ) ---
EXAM DESCRIPTION: MRI HEAD WITHOUT IMAGES COMPLETED DATE/TIME: 02/20/2020 2:02 pm REASON FOR STUDY: headache, prior surgery for Chiari malformation. COMPARISON: CT head 02/13/2020 TECHNIQUE: Multiplanar imaging includes non-contrasted T1, T2, FLAIR, and diffusion with ADC map seq uences. Images stored on PACS. LIMITATIONS: None. FINDINGS: ANATOMY: No anomalies. Normal vascular flow voids. Pituitary fossa normal. CSF SPACES: Normal in size and contour. No hemorrhage. CEREBRUM: Sulci and gyri normal in size and contour. Normal white matter signal on FLAIR imaging. No evidence of hemorrhage, mass, or extraaxial fluid collection. POSTERIOR FOSSA: No signal alteration. No hemorrhage. No edema, masses or mass effect. Internal sarah tory canals, cerebello-pontine angles, mastoids normal. DIFFUSION IMAGING: Negative for acute or sub-acute infarction. ORBITS: No masses. Globes normal. PARANASAL SINUSES: No fluid levels. Mucosa normal. OTHER: Postoperative changes in the midline posterior occipital skull and scalp, stable. No subcutan eous abscess or fluid. IMPRESSION: No acute ischemia, mass, mass effect, or other abnormality of the intracranial contents. Postoperative changes of suboccipital craniectomy, stable. EVIDENCE OF ACUTE STROKE: NO. TECHNICAL DOCUMENTATION: JOB ID: [id number] [employer]- All Rights Reserved Reading location - IP/workstation name: [email or web address]
[2020-02-20] MEDS ORDERED: DEXAMETHASONE SOD PHOS INJ 10 MG/1 ML VIAL IV ONE (16:00)
[2020-02-20] MEDS ORDERED: NORMAL SALINE 1000 ML 1,000 ML IV ONE (16:23)
[2020-02-20 17:06] VITALS: BP 126/89
--- NOTE | 2020-02-20 22:29 | EKG REPORT ---
SEVERITY:- NORMAL ECG - SINUS RHYTHM : Confirmed by: Faiza Bird 20-Feb-2020 22:28:37
== END 2020-02-20 17:17 | disposition home or self-care (01) ==
LOC: ER 12:47
DX: R51 Headache (principal); R42 Dizziness and giddiness; R53.1 Weakness; F17.200 Nicotine dependence, unspecified, uncomplicated; Z88.6 Allergy status to analgesic agent; Z88.3 Allergy status to other anti-infective agents; Z90.49 Acquired absence of other specified parts of digestive tract
CPT/HCPCS: 93005; 99284; 96374; 36415; 85025; 80053; 81001; 84484; 70551; 93010; J7030; J1100

== ENCOUNTER 2020-03-09 08:16 | Emergency (ER) | payer OTHER ==
[2020-03-09 08:34] VITALS: BP 146/93
[2020-03-09] MEDS ORDERED: KETOROLAC TROMETHAMINE 60 MG/2 ML SDV IM ONE (11:49)
[2020-03-09] MEDS ORDERED: CYCLOBENZAPRINE HCL 10 MG TABLET PO ONE (11:49)
--- NOTE | 2020-03-09 11:59 | ER Document Report ---
ED General - General Chief Complaint: Back Pain Stated Complaint: BACK PAIN Time Seen by Provider: 03/09/20 10:02 Primary Care Provider: MAJOR CRAIN MD [Primary Care Provider] - Follow up as needed TRAVEL OUTSIDE OF THE [place] IN LAST 30 DAYS: No - HPI Notes: Chief complaint: Low back pain HPI: 49-year-old man with previous failed surgery for lumbar disc disease presents today reporting exacerbation of his chronic low back pain over the last 1 month. He went to see his primary care physician Dr. Major Crain who was unwilling to prescribe narcotic medications for his discomfort. He subsequently made a referral for the patient to pain management clinic for evaluation he is scheduled to go on [address] Sorensen treated him with a steroid Dosepak and NSAID which patient says has not been of any help at all. He spoke with Dr. Crain within the last 24 hours and was advised to come to the ER. Patient denies bowel or bladder symptoms. He has had some intermittent pares thesias over the lateral aspect of the right ankle and foot which he says is a chronic symptom. - Related Data Allergies/Adverse Reactions: morphine Allergy (Intermediate, Verified 03/09/20 08:28) itching cephalexin [From Keflex] Allergy (Verified 03/09/20 08:28) ciprofloxacin [From Cipro] Allergy (Verified 03/09/20 08:28) gluten Allergy (Verified 03/09/20 08:28) hydrocodone [From Vicodin] Allergy (Verified 03/09/20 08:28) ibuprofen [From Advil] Allergy (Verified 03/09/20 08:28) metoclopramide [From Reglan] Allergy (Verified 03/09/20 08:28) prednisone Allergy (Verified 03/09/20 08:29) Penicillins Adverse Reaction (Severe, Verified 03/09/20 08:28) GI upset Past Medical History - General Information source: Patient - Yegabrielle you guann - Social History Smoking Status: Current Every Day Smoker Chew tobacco use (# tins/day): No Frequency of alcohol use: None Drug Abuse: None Family History: Reviewed & Not Pertinent Patient has homicidal ideation: No Renal/ Medical History: Denies: Hx Peritoneal Dialysis Past Surgical History: Reports: Hx Cholecystectomy, Hx Neurologic Surgery - chiari malformation sx, Hx Orthopedic Surgery - L4 L5 lamenectomy - Immunizations Hx Diphtheria, Pertussis, Tetanus Vaccination: Yes Review of Systems - Review of Systems Notes: Constitutional: Negative for fever. HENT: Negative for sore throat. Eyes: Negative for visual changes. Cardiovascular: Negative for chest pain. Respiratory: Negative for shortness of breath. Gastrointestinal: Negative for abdominal pain, vomiting or diarrhea. Genitourinary: Negative for dysuria. Musculoskeletal: As per HPI. Skin: Negative for rash. Neurological: Negative for headaches, weakness or numbness. 10 point ROS negative except as marked above and in HPI. Physical Exam - Vital signs Vitals: Temp Pulse Resp BP Pulse Ox 98.6 F 93 20 146/93 H 100 03/09/20 08:31 03/09/20 08:31 03/09/20 08:31 03/09/20 08:31 03/09/20 08:31 - Notes Notes: GENERAL: Well-developed well-nourished appearing in no acute distress. SKIN: Good turgor no rashes. HEAD: Normocephalic atraumatic. EYES: PERRLA. EOMI. Conjunctivae and sclerae clear. EARS: CANALS AND TMS CLEAR. NOSE: CLEAR. MOUTH: Moist mucosa. Good dentition. No stridor or edema. No drooling. NECK: Supple. No masses or thyromegaly. No adenopathy. Carotids 2+ without bruits. No JVD. BACK: Lumbar surgical scars present. Mild spasm and tenderness lumbar area. Straight leg raising produces lower back pain without radiation. CHEST: Respirations unlabored. Breath sounds clear and symmetrical. HEART: Regular rhythm. No murmur gallop or rub. ABDOMEN: Soft nontender without masses, organomegaly or rebound. Bowel sounds normally active. No bruits. GENITALIA: Deferred. EXTREMITIES: No edema. No calf tenderness. Cap refill less than 1.5 seconds. Dorsalis pedis and posterior tibial pulses 3+ and symmetrical. NEUROLOGICAL: GCS 15. Alert and oriented x3. Normal gait. Fluent speech. Cranial nerves II through XII intact. Sensorimotor and cerebellar normal. Nor mal tone. PSYCHIATRIC: Appropriate affect. Course - Re-evaluation Re-evalutation: 03/09/20 12:08 This appears to be an exacerbation of chronic low back pain in a man who has a chronic pain syndrome. His primary care provider has resisted treating this with narcotics and the patient reports allergies to wide variety of medications. On further questioning he actually has tolerated NSAIDs without any severe allergic reaction. I explained to him that I would be happy to treat his pain with nonnarcotic interventions but would defer any other type of prescription to pain management clinic. I gave him an injection of IM Toradol here and some oral Flexeril. I will send him out with some Toradol and Flexeril on prescription for home as well as transdermal lidocaine patch. - Vital Signs Vital signs: Temp Pulse Resp BP Pulse Ox 98.6 F 93 20 146/93 H 100 03/09/20 08:31 03/09/20 08:31 03/09/20 08:31 03/09/20 08:31 03/09/20 08:31 Discharge - Discharge Clinical Impression: Acute exacerbation of chronic low back pain Condition: Stable Disposition: HOME, SELF-CARE Instructions: Low Back Pain ([facility]) Additional Instructions: Chronic Back Pain Chronic back pain (pain persisting longer than three months) is a common problem. A medical evaluation can look for herniated disc, arthritis, osteoporosis, tumors, and infections. But at least half the time, there's no obvious treatable cause. Anxiety and depression tend to worsen back pain. Ibuprofen or other anti-inflammatory medicine can help. A heating pad, used for 15-20 minutes at a time, can ease pain. For this type of back pain, narcotic medicines should be avoided. Muscle relaxers are rarely helpful unless you're having spasms. Activity is important. Find an aerobic exercise program that your back can tolerate. Too much rest makes back pain worse. Specific back exercises are usually prescribed to strengthen the back and abdominal muscles. Often, a physical therapist can help. Avoid heavy lifting, working while bent over, or standing with both knees straight. Most back pain patients do better with a firm mattress. If new symptoms of a "herniated disc" (radiation of pain, numbness, or tingling down the back of the leg or weakness in the leg) occur, you should be re-examined.Chronic Pain Control Stress, inactivity, and depression make pain more severe regardless of the cause of the pain. Stress and poor physical condition can cause pain such as headaches and backache. Relaxation: Rest in a quiet place with your eyes closed for 20 minutes twice daily. Concentrate on a pleasant image, or simply "feel" your breathing. Clear your mind. Stress management: Deal with your "stressors." Either take action, or eliminate the stressor from your life. Don't let things hang over you. Accept those things you can't change. Nutrition: Eat small, balanced meals -- don't skip, don't overeat. Meals should be high-carbohydrate, low-sugar, low-fat. Exercise: Exercise helps painful conditions and eases stress. Get 30 minutes of moderate exercise, five days a week. Do an activity that does not flare your pain. Precautions: Pain which continues to disrupt daily activities, or which changes in nature, requires a medical evaluation. Pain Clinic referral is [facility]. We do not manage chronic pain in the Emergency Department. We will try to appropriately help you through an acute flare of your chronic painful condition, but for on-going chronic pain that does not improve, you will need to see your private doctor or supervisor paint department. We do not provide repeated medication management of chronic painful conditions. If you wish, we can provide the name of local pain management physicians. Follow-up with your primary care physician and/or supervisor paint department. Prescriptions: Ketorolac Tromethamine [Toradol 10 mg Tablet] 10 mg PO Q6HP PRN 10 Days #20 tablet PRN Reason: Cyclobenzaprine HCl [Flexeril 10 mg Tablet] 10 mg PO TIDP PRN #15 tab PRN Reason: Lidocaine/Hydrocortisone AC [Lidocaine-Hc 2-2% Cream Kit] 1 each RC BID 14 Days #14 kit Referrals: MAJOR CRAIN MD [Primary Care Provider] - Follow up as needed
== END 2020-03-09 12:58 | disposition home or self-care (01) ==
LOC: ER 08:16
DX: G89.4 Chronic pain syndrome (principal); M54.9 Dorsalgia, unspecified; R20.2 Paresthesia of skin; R25.2 Cramp and spasm; F17.200 Nicotine dependence, unspecified, uncomplicated; Z88.6 Allergy status to analgesic agent; Z88.5 Allergy status to narcotic agent; Z88.1 Allergy status to other antibiotic agents; Z91.018 Allergy to other foods; Z88.8 Allergy status to other drugs, medicaments and biological substances
CPT/HCPCS: 99283; 96372; J1885